=== PATIENT | female | born 1965 | race Hispanic/Latino ===

== ENCOUNTER 2019-06-30 19:46 | Inpatient (IN) | payer MEDICARE, MEDICAID ==
[2019-06-30 20:13] LABS: #Basophils 0.1 thou/uL (0.0-0.2); #Eosinphils 0.1 thou/uL (0.0-0.7); #Lymphocytes 1.7 thou/uL (1.20-3.40); #Monocytes 0.3 thou/uL (0.11-0.59); #Neutrophils 3.9 thou/uL (1.40-6.50); %Eosinophils 1.9 % (0.0-10.0); %Monocytes 4.5 % (0.0-10.0); %Neutrophils 64.7 % (42.0-75.0); Hemoglobin 13.6 g/dL (12.0-16.0); Mean Corpuscular HGB CONC 33.1 g/dL (32.0-36.0); Mean Corpuscular Hemoglobin 29.8 pg (27.0-31.0); Mean Corpuscular Volume 90.2 fL (78.0-98.0); Mean Platelet Volume 8.6 fL (7.4-10.4); Platelet Count 237 thou/uL (130-400); RBC Distribution Width 13.2 % (11.5-14.5); Red Blood Cell (RBC) Count 4.56 mill/uL (4.20-5.40); White Blood Cell (WBC) Count 6.1 thou/uL (4.8-10.8)
[2019-06-30 20:33] LABS: ALT (SGPT) 12 U/L (8-55); AST (SGOT) 10 U/L (5-34); Alkaline Phosphatase 159 U/L (40-150); Anion Gap 15 mmol/L (10-20); BUN (Urea Nitrogen) 22 mg/dL (9.8-20.1); Calc. Creatinine Clearance 0 mL/min (70-130); Calcium 10.5 mg/dL (7.8-10.44); Carbon Dioxide 26 mmol/L (22-29); Chloride 88 mmol/L (98-107); Estimated GFR-MDRD 42; Globulin 3.2 g/dL (2.4-3.5); Potassium 4.3 mmol/L (3.5-5.1); Protein, Total 7.2 g/dL (6.0-8.3); Sodium 125 mmol/L (136-145)
--- NOTE | 2019-06-30 20:51 | RAD ---
Portable chest radiograph: 06/30/2019 COMPARISON: 07/31/2014 HISTORY: Dysuria, polyuria FINDINGS: There is a stable 1.5 cm lateral mid right lung nodule. Heart and mediastinal contours are stable. No pneumothorax, pleural fluid, focal consolidation, or alveolar edema. IMPRESSION: Stable appearance of the chest-no acute findings.
[2019-06-30] MEDS ORDERED: Ondansetron ODT 4 MG TAB ONE (20:56)
[2019-06-30 21:16] LABS: Glucose 720 mg/dL (70-105)
[2019-06-30 21:45] LABS: Bilirubin Negative (Negative); Blood, Urine Negative (Negative); Clarity Clear (Clear); Glucose, Urine (Dipstick) Greater than 1000 mg/dL (Negative); Leukocyte Negative Leu/uL (Negative); Nitrite Negative (Negative); Protein, Urine (Dipstick) 10 mg/dL (Neg-Trace); Urobilinogen Normal mg/dL (Less than 2)
[2019-06-30] MEDS ORDERED: Mag-Al 1200 mg/1200 mg/30 ML UDCUP ONE (22:38)
[2019-06-30] MEDS ORDERED: Lidocaine Viscous Sol 2% 15 ml UD Cup ONE (22:38)
[2019-07-01] MEDS ORDERED: Insulin Regular 100 units/100 ml in NS IVPB SCH (00:30)
[2019-07-01] MEDS ORDERED: cloNIDine 0.1 MG TAB ONE (01:12)
[2019-07-01 01:41] LABS: Anion Gap 15 mmol/L (10-20); BUN (Urea Nitrogen) 20 mg/dL (9.8-20.1); Calc. Creatinine Clearance 0 mL/min (70-130); Calcium 10.2 mg/dL (7.8-10.44); Carbon Dioxide 23 mmol/L (22-29); Chloride 97 mmol/L (98-107); Estimated GFR-MDRD 56; Glucose 546 mg/dL (70-105); Potassium 3.9 mmol/L (3.5-5.1); Sodium 131 mmol/L (136-145)
--- NOTE | 2019-07-01 05:46 | HP ---
PRIMARY CARE PHYSICIAN: The patient has no PCP. CODE STATUS: Full code. TIME OF EVALUATION: 4:00 a.m. CHIEF COMPLAINT: Hyperglycemia. HISTORY OF PRESENT ILLNESS: This is a 53-year-old female patient with past medical history of diabetes and noncompliance. The patient came to the hospital after having polyuria, polydipsia, fatigue associated with nausea. The patient has not had any insulin in the past few days. Reportedly, has some issues to acquire her medications. Symptoms are severe, triggered by uncontrolled diabetes. No alleviating factors other than medical treatment. REVIEW OF SYSTEMS: CONSTITUTIONAL: The patient had no fever. The patient had chills, generalized weakness. RESPIRATORY: No cough, sputum production, or shortness of breath. CARDIOVASCULAR: No chest pain or palpitation. GASTROINTESTINAL: The patient had nausea and vomiting. No diarrhea. The patient has abdominal pain. SENIOR PREMIUM AUDITOR: No dizziness, headache, or feeling lightheaded. GENITOURINARY: No burning on urination. EXTREMITIES: No leg swelling. All other systems were reviewed and negative except for the findings mentioned above. PAST MEDICAL HISTORY: Positive for diabetes type 2, hypertension. PAST SURGICAL HISTORY: Hernia repair and tubal ligation. PSYCHIATRIC HISTORY: No previous psychiatric history. SOCIAL HISTORY: No alcohol. No drugs. No smoking history. KNOWN ALLERGIES: No known drug allergies. REPORTED MEDICATIONS: Unknown. PHYSICAL EXAMINATION: VITAL SIGNS: Blood pressure 156/98 with heart rate 108, respiratory rate was 20, temperature 98.1, pain was 10, oxygen saturation was 96. GENERAL APPEARANCE: The patient is alert, oriented, no acute distress. HEENT: Eyes, normal conjunctivae. Moist oral mucosa. Anicteric. No JVD. RESPIRATORY: Bilateral air entry. No rales. No wheezing. Symmetric expansion. CARDIOVASCULAR: Normal rate, regular rhythm. No murmurs. No gallop. No edema. ABDOMEN: Soft. Normal bowel sounds. MUSCULOSKELETAL: Baseline range of motion and strength. SKIN: Warm and intact. No pallor. No rash. No redness. The patient has some bilateral lower extremities chronic changes with change in texture and color. Capillary refill seems to be intact. NEUROLOGIC: No evidence of any new focal weakness. Cranial nerves seems to be intact. PSYCHIATRIC: The patient is in good mood. No anxiety. Optimal judgment. IMAGING DATA: Chest x-ray was reviewed, stable appearance of the chest, no acute finding. LABORATORY DATA: Labs were reviewed. The patient has white count of 6.1, hemoglobin 13.6, MCV 90.2, platelet count 237. Chemistry; sodium 125, potassium 4.3, chloride 88, carbon dioxide 26, anion gap 15, BUN 22, creatinine 1.32, GFR 42, glucose 120, serum osmolality 310, calcium 10.5, total bilirubin 1.0, AST 10, ALT 12, alkaline phosphatase 159, troponin was negative. Serum total protein 7.2, albumin 4.0. Urine was done, was negative. Beta hydroxybutyrate 0.3. ASSESSMENT AND PLAN: The patient will be placed in the hospital with following medical problems: 1. Uncontrolled diabetes with early stage of hyperosmolar hyperglycemic state. The patient has increased serum osmolality with glucose 120. The patient has received aggressive hydration and also insulin drip. We will repeat the BMP. Metabolic derangement is improving. We will monitor, likely to be able to switch to insulin subcu and diet. 2. Acute kidney injury. The patient presented with a creatinine of 1.3. Previous creatinine was 1.0. This is likely secondary to dehydration secondary to hyperglycemia. The kidney function have improved after aggressive hydration in the ER. So, this problem has resolved. 3. Hypercalcemia, 10.5. This is mild, likely due to dehydration. This has corrected also after aggressive hydration. 4. Uncontrolled hypertension. The systolic blood pressure in the 180s. Reconcile home medications, adjust treatment as needed. 5. Deep venous thrombosis prophylaxis. Job ID: [id number]
[2019-07-01 07:56] LABS: Anion Gap 9 mmol/L (10-20); BUN (Urea Nitrogen) 18 mg/dL (9.8-20.1); Calc. Creatinine Clearance 0 mL/min (70-130); Calcium 9.5 mg/dL (7.8-10.44); Carbon Dioxide 27 mmol/L (22-29); Chloride 102 mmol/L (98-107); Estimated GFR-MDRD 73; Glucose 249 mg/dL (70-105); Potassium 3.9 mmol/L (3.5-5.1); Sodium 134 mmol/L (136-145)
[2019-07-01] MEDS ORDERED: D5 1/2 NS w/20 mEq KCL 1,000 ML ONE (09:08)
[2019-07-01] MEDS ORDERED: D5 1/2 NS w/20 mEq KCL 1,000 ML IV SCH (09:15)
[2019-07-01] MEDS ORDERED: Dextrose 5% in Water 1,000 ML IV PRN (13:32)
[2019-07-01] MEDS ORDERED: Dextrose 50% Abboject 50 ML SYRINGE SLOW IVP PRN (13:32)
--- NOTE | 2019-07-01 13:41 | PDOC.EVN ---
Event Note - Event Note Event Note: Chart reviewed, patient seen and examined. She is feeling better in general. Hungry. Reports she has had urinary urgency and frequency. Labs improving. Blood sugars are improved. Was changed to D5 1/2 NS. Exam is benign. Will change IVF to NS at 100 cc/her. Stop insulin gtt. Add Lantus, Moderate SSI. Diabetic diet. Downgrade to medical floor bed. Urine cx growing probable E. coli. Start Rocephin.
[2019-07-01] MEDS ORDERED: cefTRIAXone\\ROCEPHIN 1 GM in Sodium Chloride 0.9% 100 ML IVPB SCH (14:00)
[2019-07-01] MEDS ORDERED: Insulin Glargine 20 UNITS in Pre-Filled Syringe 1 EACH SC SCH (14:15)
[2019-07-01 14:59] VITALS: BMI 41.1
[2019-07-01] MEDS: HumaLOG 300 UNITS/3 ML VIAL SC PRN (17:21)
[2019-07-01] MEDS ORDERED: HumaLOG 300 UNITS/3 ML VIAL SC PRN (20:16)
[2019-07-02] MEDS: HumaLOG 300 UNITS/3 ML VIAL SC PRN ×2 (05:14→12:24)
[2019-07-02] MEDS ORDERED: Insulin Glargine 20 UNITS in Pre-Filled Syringe 1 EACH SC SCH (09:00)
[2019-07-02] MEDS ORDERED: Amlodipine 10 MG TAB PO SCH (09:00)
[2019-07-02 09:49] LABS: #Eosinphils 0.2 thou/uL (0.0-0.7); #Lymphocytes 1.5 thou/uL (1.20-3.40); #Monocytes 0.3 thou/uL (0.11-0.59); #Neutrophils 2.9 thou/uL (1.40-6.50); %Basophils 0.1 % (0.0-1.0); %Eosinophils 3.3 % (0.0-10.0); %Lymphocytes 31.5 % (21.0-51.0); %Monocytes 5.1 % (0.0-10.0); %Neutrophils 59.9 % (42.0-75.0); Hemoglobin 12.8 g/dL (12.0-16.0); Mean Corpuscular HGB CONC 33.1 g/dL (32.0-36.0); Mean Corpuscular Hemoglobin 29.1 pg (27.0-31.0); Mean Corpuscular Volume 87.9 fL (78.0-98.0); Mean Platelet Volume 8.8 fL (7.4-10.4); Platelet Count 197 thou/uL (130-400); RBC Distribution Width 13.3 % (11.5-14.5); Red Blood Cell (RBC) Count 4.39 mill/uL (4.20-5.40); White Blood Cell (WBC) Count 4.9 thou/uL (4.8-10.8)
[2019-07-02 10:10] LABS: ALT (SGPT) 13 U/L (8-55); AST (SGOT) 16 U/L (5-34); Albumin 3.4 g/dL (3.5-5.0); Alkaline Phosphatase 75 U/L (40-150); Anion Gap 8 mmol/L (10-20); BUN (Urea Nitrogen) 16 mg/dL (9.8-20.1); Bilirubin, Total 0.5 mg/dL (0.2-1.2); Calc. Creatinine Clearance 150 mL/min (70-130); Calcium 8.9 mg/dL (7.8-10.44); Carbon Dioxide 26 mmol/L (22-29); Chloride 105 mmol/L (98-107); Estimated GFR-MDRD 83; Globulin 2.6 g/dL (2.4-3.5); Glucose 260 mg/dL (70-105); Sodium 135 mmol/L (136-145)
[2019-07-02 11:12] VITALS: BP 144/71; TEMP 97.9
[2019-07-02] MEDS ORDERED: Carvedilol 25 MG TAB PO SCH (17:00)
== END 2019-07-02 14:14 | disposition home or self-care (01) | DRG 638 ==
LOC: ERS 19:46 → ERHOLD 07-01 01:05 → T4-A 07-01 01:05
PROVIDERS: ADMIT Hospitalist; ATTEND Hospitalist
DX: E11.00 Type 2 diabetes mellitus with hyperosmolarity without nonketotic hyperglycemic-hyperosmolar coma (NKHHC) (principal); N17.9 Acute kidney failure, unspecified; E83.52 Hypercalcemia; E86.0 Dehydration; I10 Essential (primary) hypertension; B96.20 Unspecified Escherichia coli [E. coli] as the cause of diseases classified elsewhere; Z98.51 Tubal ligation status; Z79.4 Long term (current) use of insulin; Z91.14 Patient's other noncompliance with medication regimen
CPT/HCPCS: 36415; 36416; 71045; 80048; 80053; 81003; 82010; 83880; 83930; 84484; 85025; 87077; 87086; 87186; 94760; J0696; J1815; J3480; J3490; J7050; Q0162

== ENCOUNTER 2019-08-25 13:32 | Outpatient (CLI) | payer MEDICARE, MEDICAID ==
--- NOTE | 2019-08-25 13:47 | RAD ---
XR Chest Pa Lat STANDARD HISTORY: Coronary artery disease COMPARISON: 07/31/2014 study. FINDINGS: Heart size is borderline. There are atherosclerotic changes of aorta. A granuloma is seen i n the right midlung field. Stable. No infiltrative process. IMPRESSION: Borderline heart size.
== END 2019-08-25 13:33 | disposition home or self-care (01) ==
LOC: BICRAD 13:32
PROVIDERS: ATTEND Internal Medicine
DX: I25.10 Atherosclerotic heart disease of native coronary artery without angina pectoris (principal)
CPT/HCPCS: 71046

== ENCOUNTER 2019-09-04 19:39 | Observation (INO) | payer MEDICARE, OTHER ==
[2019-09-04 21:09] LABS: #Basophils 0.1 thou/uL (0.0-0.2); #Eosinphils 0.2 thou/uL (0.0-0.7); #Lymphocytes 2.4 thou/uL (1.20-3.40); #Monocytes 0.3 thou/uL (0.11-0.59); %Basophils 0.7 % (0.0-1.0); %Eosinophils 2.3 % (0.0-10.0); %Lymphocytes 29.5 % (21.0-51.0); %Monocytes 4.1 % (0.0-10.0); %Neutrophils 63.4 % (42.0-75.0); Hemoglobin 14.2 g/dL (12.0-16.0); Mean Corpuscular HGB CONC 35.6 g/dL (32.0-36.0); Mean Corpuscular Hemoglobin 29.9 pg (27.0-31.0); Mean Platelet Volume 8.4 fL (7.4-10.4); Platelet Count 250 thou/uL (130-400); RBC Distribution Width 12.8 % (11.5-14.5); Red Blood Cell (RBC) Count 4.73 mill/uL (4.20-5.40)
--- NOTE | 2019-09-04 21:18 | RAD ---
XR Chest 1 View Portable History: Arm pain and hypertension Comparison: Multiple prior examinations, most recent August 25, 2019 Findings: Unchanged right middle lobe granuloma. Lungs are otherwise clear. No pneumothorax. No effus ion. No acute osseous abnormality. Impression: No acute intrathoracic abnormality.
[2019-09-04 21:30] LABS: Troponin I 0.015 ng/mL (< 0.028)
[2019-09-04 21:35] LABS: ALT (SGPT) 17 U/L (8-55); AST (SGOT) 15 U/L (5-34); Albumin 3.8 g/dL (3.5-5.0); Alkaline Phosphatase 106 U/L (40-110); Anion Gap 14 mmol/L (10-20); BUN (Urea Nitrogen) 20 mg/dL (9.8-20.1); Bilirubin, Total 0.6 mg/dL (0.2-1.2); CK (CPK) 37 U/L (29-168); Calc. Creatinine Clearance 0 mL/min (70-130); Calcium 9.1 mg/dL (7.8-10.44); Carbon Dioxide 24 mmol/L (22-29); Chloride 96 mmol/L (98-107); Estimated GFR-MDRD 58; Globulin 3.2 g/dL (2.4-3.5); Glucose 465 mg/dL (70-105); Lipase 40 U/L (8-78); Potassium 3.9 mmol/L (3.5-5.1); Sodium 130 mmol/L (136-145)
[2019-09-04] MEDS ORDERED: Aspirin Chewable 81 MG TAB ONE (21:50)
[2019-09-04] MEDS ORDERED: Nitroglycerin 0.4 MG TAB 1 EACH ONE (21:50)
[2019-09-04] MEDS ORDERED: traMADol HCl 50 MG TAB ONE (23:56)
[2019-09-05 00:25] LABS: Troponin I Less than 0.010 ng/mL (< 0.028)
[2019-09-05 03:37] VITALS: BMI 38.2
[2019-09-05] MEDS ORDERED: Acetaminophen 325 MG TAB PO PRN (04:04)
[2019-09-05] MEDS ORDERED: Sodium Chloride 0.9% 1,000 ML IV SCH (04:15)
[2019-09-05 04:45] LABS: Troponin I 0.029 ng/mL (< 0.028)
[2019-09-05] MEDS ORDERED: Aspirin Chewable 81 MG TAB PO SCH (09:00)
[2019-09-05] MEDS ORDERED: Amlodipine 10 MG TAB PO SCH (12:15)
[2019-09-05] MEDS ORDERED: Losartan 25 MG TAB PO SCH (12:15)
[2019-09-05 12:24] VITALS: TEMP 97.5
[2019-09-05] MEDS ORDERED: FLU VACC QS2019-20(6MOS UP)/PF 60 MCG/0.5 ML SYRINGE IM ONE (12:30)
[2019-09-05 13:35] VITALS: BP 156/79
--- NOTE | 2019-09-05 14:55 | HP ---
REASON FOR ADMISSION: Right upper extremity pain, uncontrolled diabetes. HISTORY OF PRESENTING ILLNESS: The patient gives history of pain in the right upper extremity especially in her elbow and arm when she tries to move it. No complaints of left-sided chest pain or left upper extremity pain. No complaints of cough or expectoration. No history of fall. She normally uses a walker due to severe osteoarthritis in her knee. She has known history of sleep apnea and uses CPAP. No fever, cough, or expectoration. No history of trauma to the neck. She is able to move all her fingers on the right upper extremity and is able to do both active and passive range of motion in the right upper extremity at present. The pain has completely resolved at present. She had this pain yesterday, which was 3 to 4/10 in intensity with no radiation. PAST MEDICAL AND SURGICAL HISTORY: 1. Diabetes mellitus type 2. 2. Obstructive sleep apnea. 3. Hypertension. 4. She has had coronary artery disease with drug-eluting stent placed to LAD in August of last year by Dr. Thompson. 5. Tubal ligation. CURRENT MEDICATIONS: 1. Toprol-XL 25 mg p.o. daily. 2. Norvasc 10 mg daily. 3. Protonix 40 mg daily. 4. Losartan 100 mg daily. 5. Tresiba 20 units subcu at bedtime. ALLERGIES: NO KNOWN DRUG ALLERGIES. PERSONAL HISTORY: Does not abuse alcohol or drugs. No history of smoking. FAMILY HISTORY: Mother in her 60s, she had complications with CABG done in [place]. Father of massive IL at the age of 55 years. CODE STATUS: Full. POWER OF HOT TOP LINER: Her , Mr. Alan Mckeon. REVIEW OF SYSTEMS: CONSTITUTIONAL: Negative for weight loss or gain, ability to conduct usual activities. SKIN: Negative for rash, itching. EYES: Negative for double vision, pain. ENT/MOUTH: Negative for nose bleeding, neck stiffness, pain, tenderness. CARDIOVASCULAR: Negative for palpitations, dyspnea on exertion, orthopnea. RESPIRATORY: Negative for shortness of breath, wheezing, cough, hemoptysis, fever or night sweats. GASTROINTESTINAL: Negative for poor appetite, abdominal pain, heartburn, nausea, vomiting, constipation, or diarrhea. GENITOURINARY: Negative for urgency, frequency, dysuria, nocturia. MUSCULOSKELETAL: Negative for pain, swelling. NEUROLOGIC/PSYCHIATRIC: Negative for anxiety, depression. ALLERGY/IMMUNOLOGIC: Negative for skin rash, bleeding tendency. PHYSICAL EXAMINATION: GENERAL: The patient is a 53-year-old female, who is currently not in any acute distress. VITAL SIGNS: Blood pressure 160/80, pulse 90 per minute, respiratory rate 16 per minute, temperature 97.5 degrees Fahrenheit, saturating 99% on room air. NECK: Supple. No elevated JVD. HEENT: Eyes; extraocular muscles intact. Pupils reacting to light. Oral cavity, mucous membranes are dry. No exudates or congestion. CARDIOVASCULAR: S1, S2 heard. Regular rhythm. RESPIRATORY: Air entry 1+ bilateral. No rales or rhonchi. ABDOMEN: Soft. Bowel sounds heard. No tenderness, rigidity, or guarding. EXTREMITIES: No peripheral edema or calf tenderness. VASCULAR SYSTEM: Peripheral pulses 1+ bilateral. No ischemic ulcerations or gangrene. CENTRAL NERVOUS SYSTEM: No gross focal deficits noted. The patient is alert, awake, oriented well. PSYCHIATRIC: The patient's mood is euthymic. No hallucinations or delusions. LABORATORY AND DIAGNOSTIC DATA: Troponin x2 negative. BUN 20, creatinine 0.9, serum glucose 465 on arrival. Liver enzymes within normal limits. BNP 36. Albumin is 3.8. Lipase is 40. H and H of 14 and 39, platelet count 250, white count of 8. D-dimer less than 0.27. EKG done shows normal sinus rhythm at 96 beats per minute. There are signs of LVH seen. QRS duration is 114 milliseconds with corrected QT of 517 milliseconds. CLINICAL IMPRESSION AND PLAN: The patient will be shortly discharged home. Please note, this is a same day admission and observation discharge summary. She was counseled with regard to compliance with her medications for diabetes. She is advised to check fingerstick glucose twice daily and record for a period of 10 days to follow up with primary care physician. The patient has had prior stent placed in August of last year and follows up with Dr. Thompson. She was not taking antiplatelet agents before. She has been placed on aspirin and needs to continue her Norvasc, losartan, Toprol-XL as before. We will also place her on Lipitor 40 mg at bedtime in view of elevated total cholesterol of 218, triglycerides of 326, LDL of 109. We will add Tricor 48 mg p.o. daily as well to her medication regimen. She is otherwise hemodynamically stable. She is ambulating with a rolling walker with 3 wheels. The patient needs to follow up with her primary haircutter, Dr. Thompson in 2 weeks, and primary care physician, Dr. Yang in 1 week. Job ID: [id number]
[2019-09-06] MEDS ORDERED: Losartan 25 MG TAB PO SCH (09:00)
[2019-09-06] MEDS ORDERED: Amlodipine 10 MG TAB PO SCH (09:00)
--- NOTE | 2019-09-13 15:01 | EKG ---
Test Reason : Blood Pressure : / mmHG Vent. Rate : 092 BPM Atrial Rate : 092 BPM P-R Int : 178 ms QRS Dur : 108 ms QT Int : 404 ms P-R-T Axes : 057 -38 084 degrees QTc Int : 499 ms Normal sinus rhythm Possible Left atrial enlargement Left axis deviation Left ventricular hypertrophy Prolonged QT Abnormal ECG Confirmed by NICKOLAS SALEEM DO ([id number]), editor city BRANDON GLEZ ([id number]) on 09/13/2019 3:01:08 PM Referred By: Confirmed By:NICKOLAS SALEEM DO
== END 2019-09-05 13:55 | disposition home or self-care (01) ==
LOC: ERS 19:39 → 2SW 09-05 02:43
PROVIDERS: ADMIT Internal Medicine; ATTEND Internal Medicine
DX: M79.621 Pain in right upper arm (principal); M25.521 Pain in right elbow; E11.9 Type 2 diabetes mellitus without complications; I10 Essential (primary) hypertension; I25.10 Atherosclerotic heart disease of native coronary artery without angina pectoris; G47.33 Obstructive sleep apnea (adult) (pediatric); Z30.2 Encounter for sterilization; Z79.899 Other long term (current) drug therapy; Z95.5 Presence of coronary angioplasty implant and graft
CPT/HCPCS: 71045; 80053; 80061; 82550; 82962; 83690; 83880; 84484 ×3; 85025; 85379; 90686; 93005; 96360; 99285; G0008; G0378 ×3; 36415; 36416; 90471

== ENCOUNTER 2019-09-26 17:04 | Emergency (ER) | payer MEDICARE, MEDICAID ==
[2019-09-26 17:57] LABS: #Eosinphils 0.1 thou/uL (0.0-0.7); #Lymphocytes 1.7 thou/uL (1.20-3.40); #Monocytes 0.3 thou/uL (0.11-0.59); #Neutrophils 5.6 thou/uL (1.40-6.50); %Basophils 0.6 % (0.0-1.0); %Eosinophils 1.5 % (0.0-10.0); %Lymphocytes 22.2 % (21.0-51.0); %Monocytes 3.6 % (0.0-10.0); %Neutrophils 72.1 % (42.0-75.0); Hemoglobin 14.7 g/dL (12.0-16.0); Mean Corpuscular HGB CONC 34.2 g/dL (32.0-36.0); Mean Corpuscular Hemoglobin 29.3 pg (27.0-31.0); Mean Corpuscular Volume 85.6 fL (78.0-98.0); Mean Platelet Volume 8.4 fL (7.4-10.4); Platelet Count 268 thou/uL (130-400); RBC Distribution Width 12.6 % (11.5-14.5); Red Blood Cell (RBC) Count 5.01 mill/uL (4.20-5.40); White Blood Cell (WBC) Count 7.8 thou/uL (4.8-10.8)
[2019-09-26 18:20] LABS: ALT (SGPT) 13 U/L (8-55); AST (SGOT) 13 U/L (5-34); Albumin 4.2 g/dL (3.5-5.0); Alkaline Phosphatase 138 U/L (40-110); Anion Gap 16 mmol/L (10-20); BUN (Urea Nitrogen) 20 mg/dL (9.8-20.1); Bilirubin, Total 0.5 mg/dL (0.2-1.2); Calc. Creatinine Clearance 0 mL/min (70-130); Calcium 9.9 mg/dL (7.8-10.44); Carbon Dioxide 26 mmol/L (22-29); Chloride 96 mmol/L (98-107); Estimated GFR-MDRD 62; Globulin 3.6 g/dL (2.4-3.5); Glucose 453 mg/dL (70-105); Potassium 4.1 mmol/L (3.5-5.1); Protein, Total 7.8 g/dL (6.0-8.3); Sodium 134 mmol/L (136-145)
[2019-09-26 18:22] LABS: Bacteria/HPF None Seen HPF (None Seen); Bilirubin Negative (Negative); Blood, Urine Negative (Negative); Clarity Clear (Clear); Glucose, Urine (Dipstick) Greater than 1000 mg/dL (Negative); Leukocyte Negative Leu/uL (Negative); Nitrite Negative (Negative); Protein, Urine (Dipstick) 30 mg/dL (Neg-Trace); RBC/HPF 0-3 HPF (0-3); Squamous Epithelial 0-3 HPF (0-3); Urobilinogen Normal mg/dL (Less than 2)
--- NOTE | 2019-09-26 18:34 | CT ---
CT Abdomen Pelvis WO Con History: Right-sided flank pain Comparison: CT abdomen and pelvis 2011 Findings: Calcified granuloma right upper lobe with small adjacent pulmonary nodules. Mitral annular calcifications. There is a nonobstructive the interpolar 1 x 2 mm calculus there is also a 1 x 2 mm superior calculus . No definite left-sided renal calculi are appreciated. No hydroureteronephrosis. No secondary evidence of a recently passed stone. There are multiple ventral abdominal hernias, supraumbilical, 3 deficient and atrophied left rectus a bdominis muscle. Please contains fat and a small portion of small bowel, and another has a small loop of small bowel with small sub-1 cm neck. These are nonobstructive. Noncontrast evaluation of the spleen, pancreas, liver, gallbladder are unremarkable. The appendix is visualized and is normal. Impression: 1. Multiple supraumbilical ventral hernias containing fat and small bowel as described with small nec ks without evidence of obstruction. 2. Punctate nonobstructive bilateral renal calculi. 3. Unchanged right upper lobe calcified pulmonary nodule adjacent smaller pulmonary nodules since 201 6.
[2019-09-26] MEDS ORDERED: Ondansetron PF 4 MG/2 ML Vial ONE (18:58)
[2019-09-26] MEDS ORDERED: Morphine 4 MG/ML VIAL ONE (18:58)
== END 2019-09-26 19:23 | disposition home or self-care (01) ==
LOC: ERS 17:04
DX: R10.9 Unspecified abdominal pain (principal); E11.9 Type 2 diabetes mellitus without complications; I10 Essential (primary) hypertension; M19.90 Unspecified osteoarthritis, unspecified site; F41.9 Anxiety disorder, unspecified; Z79.899 Other long term (current) drug therapy; Z79.4 Long term (current) use of insulin
CPT/HCPCS: 74176; 80053; 81003; 81015; 83690; 85025; 96374; 96375; J2270; J2405

== ENCOUNTER 2019-10-30 10:41 | Day surgery (SDC) | payer MEDICARE, MEDICAID ==
[2019-10-29 14:08] VITALS: BMI 39.4
[~2019-10-30 10:41] MED LIST: EPINEPHrine 0.3 MG in Ophthalmic Irrigation Solution 500 ML IVP SCH
[2019-10-30] MEDS ORDERED: Phenylephrine 2.5% Ophth Soln 5 ML BOT ONE (10:56)
[2019-10-30] MEDS ORDERED: Cyclopentolate 1% Opth Drop 2 ML BOT ONE (10:56)
[2019-10-30] MEDS ORDERED: PROPOFOL 200 MG/20 ML VIAL ONE (11:25)
[2019-10-30] MEDS ORDERED: Lidocaine 1% PF 5 ML VIAL ONE (11:25)
[2019-10-30] MEDS ORDERED: Bupivacaine PF 0.75% SDV 10 ML ONE (11:25)
[2019-10-30] MEDS ORDERED: Rocuronium Bromide 10 MG/ML (10ML VIAL) ONE (11:25)
[2019-10-30] MEDS ORDERED: PHENYLEPHRINE-NS 100 MCG/ML 10 ML SYRINGE ONE (11:25)
[2019-10-30] MEDS ORDERED: Glycopyrrolate 0.2 MG/ML 5 ML SYRINGE ONE (11:25)
[2019-10-30] MEDS ORDERED: Lidocaine 4% PF 5 ML AMP ONE (11:25)
[2019-10-30] MEDS ORDERED: Triamcinolone 40 MG/ML VIAL ONE (11:25)
[2019-10-30] MEDS ORDERED: Maxitrol 0.1% Opth Oint 3.5 GM TUBE ONE (11:25)
[2019-10-30] MEDS ORDERED: Labetalol HCl 100 MG/20 ML VIAL ONE (11:25)
[2019-10-30] MEDS ORDERED: Dexamethasone 20 MG/5 ML VIAL ONE (11:25)
[2019-10-30] MEDS ORDERED: Insulin Regular 300 UNITS/3 ML VIAL ONE (12:22)
[2019-10-30] MEDS ORDERED: Midazolam HCl 2 mg/2 ml Vial ONE (13:03)
[2019-10-30] MEDS ORDERED: Albuterol Sulfate HFA (OR ONLY) ONE (13:42)
[2019-10-30] MEDS ORDERED: Phenylephrine HCL 10 MG/ML VIAL ONE (13:55)
--- NOTE | 2019-10-30 16:16 | RAD ---
EXAM: CHEST ONE VIEW: 10/30/19 HISTORY: Follow-up pulmonary nodule. Stable 1.5 cm right lateral mid lung zone nodule. Less inspiration than the prior study. New parenchy mal changes in the retrocardiac region in the left lower lobe concerning for pneumonia and/or atelect asis. Mild vascular congestion. Borderline heart size. IMPRESSION: Borderline heart size with mild bilateral vascular congestion. Stable right mid lateral lung zone nod ule. New parenchymal changes in the left lower lobe evidence for pneumonia and/or partial atelectasis . POS: TPC
== END 2019-10-30 17:43 | disposition home or self-care (01) ==
LOC: SDC 10:41
PROVIDERS: ATTEND Ophthalmology Retina Specialist
DX: H43.12 Vitreous hemorrhage, left eye (principal)
CPT/HCPCS: 36416; 71045; 94660; J0171; J1100; J1815; J2001; J2250; J2370; J2704; J3301; J3490

== ENCOUNTER 2019-11-18 11:05 | Emergency (ER) | payer MEDICAID, OTHER ==
[2019-11-18] MEDS ORDERED: Acetaminophen 500 MG TAB ONE (11:22)
[2019-11-18] MEDS ORDERED: Ibuprofen 800 MG TAB ONE (11:22)
== END 2019-11-18 12:30 | disposition home or self-care (01) ==
LOC: ERS 11:05
DX: J06.9 Acute upper respiratory infection, unspecified (principal); I10 Essential (primary) hypertension; E11.9 Type 2 diabetes mellitus without complications; F41.9 Anxiety disorder, unspecified; Z79.899 Other long term (current) drug therapy; Z79.4 Long term (current) use of insulin
CPT/HCPCS: 87804; 99283

== ENCOUNTER 2019-12-23 20:30 | Outpatient (CLI) | payer MEDICARE, MEDICAID | END 2019-12-23 20:31 | disposition home or self-care (01) | LOC: SLEEPLAB 20:30 | PROVIDERS: ATTEND Internal Medicine Critical Care Medicine | DX: G47.33 Obstructive sleep apnea (adult) (pediatric) (principal); R09.89 Other specified symptoms and signs involving the circulatory and respiratory systems; R53.83 Other fatigue; G47.31 Primary central sleep apnea | CPT/HCPCS: 95811 ==

== ENCOUNTER 2020-02-10 16:10 | Emergency (ER) | payer MEDICARE, MEDICAID | END 2020-02-10 16:57 | disposition home or self-care (01) | LOC: ERS 16:10 | DX: J20.9 Acute bronchitis, unspecified (principal); I25.10 Atherosclerotic heart disease of native coronary artery without angina pectoris; E11.9 Type 2 diabetes mellitus without complications; I10 Essential (primary) hypertension; F41.9 Anxiety disorder, unspecified; G47.33 Obstructive sleep apnea (adult) (pediatric); Z79.899 Other long term (current) drug therapy; Z79.4 Long term (current) use of insulin | CPT/HCPCS: 99283 ==

== ENCOUNTER 2020-09-06 10:00 | Observation (INO) | payer MEDICARE, MEDICAID, OTHER ==
[2020-09-06 10:43] LABS: #Eosinphils 0.1 thou/uL (0.0-0.7); #Lymphocytes 1.6 thou/uL (1.20-3.40); #Monocytes 0.3 thou/uL (0.11-0.59); #Neutrophils 3.9 thou/uL (1.40-6.50); %Basophils 0.4 % (0.0-1.0); %Lymphocytes 27.1 % (21.0-51.0); %Monocytes 4.1 % (0.0-10.0); %Neutrophils 66.4 % (42.0-75.0); Mean Corpuscular HGB CONC 35.4 g/dL (32.0-36.0); Mean Corpuscular Volume 87.6 fL (78.0-98.0); Mean Platelet Volume 8.7 fL (7.4-10.4); Platelet Count 251 thou/uL (130-400); RBC Distribution Width 12.9 % (11.5-14.5); Red Blood Cell (RBC) Count 4.51 mill/uL (4.20-5.40); White Blood Cell (WBC) Count 5.9 thou/uL (4.8-10.8)
[2020-09-06] MEDS ORDERED: Nitroglycerin 2% Ointment 1 INCH/1 GM Packet ONE (10:45)
[2020-09-06] MEDS ORDERED: Aspirin Chewable 81 MG TAB ONE (10:45)
--- NOTE | 2020-09-06 10:45 | RAD ---
XR Chest 1 View Portable History: Chest pain Comparison: Radiograph 11/28/2019 Findings: Heart size mildly enlarged. Peripheral right lung nodule is similar. No confluent airspace consolidation, pneumothorax or effusion. Impression: No acute intrathoracic abnormality.
[2020-09-06 11:03] LABS: ALT (SGPT) 12 U/L (8-55); AST (SGOT) 10 U/L (5-34); Albumin 3.8 g/dL (3.5-5.0); Alkaline Phosphatase 136 U/L (40-110); Anion Gap 11 mmol/L (10-20); BUN (Urea Nitrogen) 28 mg/dL (9.8-20.1); Bilirubin, Total 0.5 mg/dL (0.2-1.2); Calc. Creatinine Clearance 0 mL/min (70-130); Calcium 9.1 mg/dL (7.8-10.44); Carbon Dioxide 26 mmol/L (22-29); Chloride 102 mmol/L (98-107); Estimated GFR-MDRD 68; Globulin 3.4 g/dL (2.4-3.5); Glucose 351 mg/dL (70-105); Lipase 30 U/L (8-78); Potassium 4.2 mmol/L (3.5-5.1); Protein, Total 7.2 g/dL (6.0-8.3); Sodium 135 mmol/L (136-145)
[2020-09-06 14:24] LABS: Troponin I 0.021 ng/mL (< 0.028)
--- NOTE | 2020-09-06 14:43 | PDOC.HHP ---
Hospitalist HPI - History of Present Illness Chest pain History of Present Illness: Ms. Garcia is a 54-year-old female with a past medical history of hypertension, hyperlipidemia, coronary artery disease status post heart cath in November which showed significant multivessel coronary artery disease, not felt to be a surgical candidate who presents with chest pain. Patient reports non- radiating chest pain that is substernal rated as 9 out of 10 which has lasted for the past week. Pain is constant with no alleviating or aggravating factors. In the ED initial vital signs show 192/100, 92, 14, 95% on room air. EKG showed normal sinus rhythm with no ischemic changes. Initial troponin less than 0.01, BNP 57 chest x-ray negative. Sodium 135, BUN/CR 28/0.86, glucose 351. In the ED patient received 325 of ASA, Nitropaste, and labetalol. ED provider spoke with Dr. Valdez patient's wastewater treatment plant chemist who recommended that patient be admitted for ACS rule out. Hospitalist ROS - Review of Systems Constitutional: denies: fever, chills, sweats, weakness, malaise, other Eyes: denies: pain, vision change, conjunctivae inflammation, eyelid inflammation, redness, other ENT: denies: ear pain, ear discharge, nose pain, nose discharge, nose congestion, mouth pain, mouth swelling, throat pain, throat swelling, other Respiratory: denies: cough, dry, shortness of breath, hemoptysis, SOB with excertion, pleuritic pain, sputum, wheezing, other Cardiovascular: reports: chest pain. denies: palpitations, orthopnea, paroxysmal noc. dyspnea, edema, light headedness, other Gastrointestinal: denies: nausea, vomiting, abdominal pain, diarrhea, constipation, melena, hematochezia, other Genitourinary: denies: dysuria, frequency, incontinence, hematuria, retention, other Musculoskeletal: denies: neck pain, shoulder pain, arm pain, back pain, hand pain, leg pain, foot pain, other Skin: denies: rash, lesions, hadley, bruising, other Neurological: denies: weakness, numbness, incoordination, change in speech, confusion, seizures, other - Medication Medications: Home medications include Amlodipine 10 mg Pantoprazole 40 mg ASA 81 mg Atorvastatin 80 mg Metoprolol 100 mg Insulin lispro No known drug allergies Hospitalist History - Past Medical History Other Medical History: Social history includes Coronary artery disease KERRI Hypertension Type 2 diabetes mellitus Hyperlipidemia Obesity - Past Surgical History Other Surgical History: Heart catheterization completed in November of this year which showed multivessel coronary artery disease. Cardiovascular surgery at that time did not feel patient was a surgical candidate. Patient also has a history of a stent in the LAD that was pain at time of heart cath in November. - Family History Other Family History: Strong family history of coronary artery disease including patient's mother who passed during complications of a CABG in her 60s, and father who passed of an CT at age 55. - Social History Smoking Status: Never smoker Alcohol: reports: None Drugs: reports: none Living Situation: With Family Activity level: independent ambulation - Exam General Appearance: NAD, awake alert Eye: PERRL, anicteric sclera ENT: normocephalic atraumatic, no oropharyngeal lesions, moist mucosa Neck: supple, symmetric, no JVD, no thyromegaly, no lymphadenopathy, no carotid bruit Heart: RRR, no murmur, no gallops, no rubs, normal peripheral pulses Respiratory: CTAB, no wheezes, no rales, no ronchi, normal chest expansion, no tachypnea, normal percussion Gastrointestinal: soft, non-tender, non-distended, normal bowel sounds, no palpable masses, no hepatomegaly, no splenomegaly, no bruit Extremities: no cyanosis, no clubbing, no edema Skin: normal turgor, no lesions, no rashes Neurological: cranial nerve grossly intact, normal sensation to touch, no weakness, no focal deficits, no new deficit Musculoskeletal: normal tone, normal strength, no muscle wasting Psychiatric: normal affect, normal behavior, A&O x 3 Hospitalist Results - Labs Result Diagrams: 09/06/20 10:25 09/06/20 10:25 Lab results: WBC 5.9 thou/uL (4.8-10.8) 09/06/20 10:25 Hgb 14.0 g/dL (12.0-16.0) 09/06/20 10:25 Hct 39.5 % (36.0-47.0) 09/06/20 10:25 MCV 87.6 fL (78.0-98.0) 09/06/20 10:25 Plt Count 251 thou/uL (130-400) 09/06/20 10:25 Neutrophils % 66.4 % (42.0-75.0) 09/06/20 10:25 Sodium 135 mmol/L (136-145) L 09/06/20 10:25 Potassium 4.2 mmol/L (3.5-5.1) 09/06/20 10:25 Chloride 102 mmol/L (98-107) 09/06/20 10:25 Carbon Dioxide 26 mmol/L (22-29) 09/06/20 10:25 BUN 28 mg/dL (9.8-20.1) H 09/06/20 10:25 Creatinine 0.86 mg/dL (0.6-1.1) 09/06/20 10:25 Glucose 351 mg/dL (70-105) H 09/06/20 10:25 Calcium 9.1 mg/dL (7.8-10.44) 09/06/20 10:25 Total Bilirubin 0.5 mg/dL (0.2-1.2) 09/06/20 10:25 AST 10 U/L (5-34) 09/06/20 10:25 ALT 12 U/L (8-55) 09/06/20 10:25 Alkaline Phosphatase 136 U/L (40-110) H 09/06/20 10:25 Troponin I 0.021 ng/mL (< 0.028) 09/06/20 13:48 B-Natriuretic Peptide 57.0 pg/mL (0-100) 09/06/20 10:25 Serum Total Protein 7.2 g/dL (6.0-8.3) 09/06/20 10:25 Albumin 3.8 g/dL (3.5-5.0) 09/06/20 10:25 Lipase 30 U/L (8-78) 09/06/20 10:25 Hospitalist H&P A/P - Plan Plan: 54-year-old female with history of multivessel coronary artery disease, type 2 diabetes mellitus, hypertension, hyperlipidemia, KERRI presented to the ED on 09/06/2020 with chest pain. Admitted for ACS rule out. #Chest pain EKG normal sinus rhythm, initial troponin negative. Patient has history of coronary artery disease with prior LAD stent. Patient also had recent heart cath in November 2019 which showed multivessel coronary artery disease. At that time cardiovascular surgery was consulted who did not feel that patient was a surgical candidate. Patient was medically managed for her coronary artery disease since then. She now presents with 1 week of constant 9 out of 10 chest pain. Chest x-ray negative. Plan -Telemetry -Trend troponin -Monitor electrolytes, calcium, magnesium, TSH -Cardiology consult #Hypertensive emergency Patient presented with significantly elevated blood pressures initially 197/100, increasing to 226/102. Patient reports she has been compliant with her home hypertensive medications. In emergency room patient received 20 mg of labetalol, and Nitropaste. Will ensure slow correction of patient's blood pressure. Plan -Telemetry -Hydralazine PRN -Continue home amlodipine -Continue to monitor #Coronary artery disease As above for chest pain. Continue medical management. Cardiology consult #Type 2 diabetes mellitus History of type 2 diabetes mellitus on insulin. Patient unsure of how many units she takes at home. Will place on insulin sliding scale moderate for now with glucose checks before meals and at night. #GERD Continue home pantoprazole DVT prophylaxis Lovenox Full code Case discussed with attending physician, Dr. Garcia.
[2020-09-06] MEDS ORDERED: Labetalol HCl 100 MG/20 ML VIAL ONE (14:54)
[2020-09-06] MEDS ORDERED: Dextrose 5% in Water 1,000 ML IV PRN (15:40)
[2020-09-06] MEDS ORDERED: Dextrose 50% Abboject 50 ML SYRINGE SLOW IVP PRN (15:40)
[2020-09-06] MEDS ORDERED: Insulin Regular 300 UNITS/3 ML VIAL SC PRN (15:40)
[2020-09-06] MEDS ORDERED: hydrALAZINE 20 MG/ML VIAL SLOW IVP PRN (15:44)
[2020-09-06 16:12] VITALS: BMI 41.8
[2020-09-06 16:45] LABS: Calcium 8.7 mg/dL (7.8-10.44)
[2020-09-06 17:11] LABS: Troponin I 0.025 ng/mL (< 0.028)
[2020-09-06] MEDS: Insulin Regular 300 UNITS/3 ML VIAL SC PRN (17:18)
[2020-09-06] MEDS ORDERED: Metoprolol Tartrate 50 MG TAB PO SCH (21:00)
[2020-09-06] MEDS ORDERED: Atorvastatin Calcium 40 MG TAB PO SCH (21:00)
[2020-09-07] MEDS: Labetalol HCl 100 MG/20 ML VIAL SLOW IVP PRN ×2 (00:07→11:31)
[2020-09-07] MEDS: Nitroglycerin 2% Ointment 1 INCH/1 GM Packet TOP SCH ×3 (00:07→15:25)
[2020-09-07 04:25] LABS: #Basophils 0.1 thou/uL (0.0-0.2); #Eosinphils 0.1 thou/uL (0.0-0.7); #Monocytes 0.4 thou/uL (0.11-0.59); #Neutrophils 4.7 thou/uL (1.40-6.50); %Basophils 0.7 % (0.0-1.0); %Lymphocytes 27.2 % (21.0-51.0); %Neutrophils 64.1 % (42.0-75.0); Hemoglobin 12.6 g/dL (12.0-16.0); Mean Corpuscular HGB CONC 33.2 g/dL (32.0-36.0); Mean Corpuscular Hemoglobin 29.4 pg (27.0-31.0); Mean Corpuscular Volume 88.6 fL (78.0-98.0); Mean Platelet Volume 8.6 fL (7.4-10.4); Platelet Count 246 thou/uL (130-400); RBC Distribution Width 13.3 % (11.5-14.5); Red Blood Cell (RBC) Count 4.29 mill/uL (4.20-5.40); White Blood Cell (WBC) Count 7.4 thou/uL (4.8-10.8)
[2020-09-07 04:38] LABS: Anion Gap 12 mmol/L (10-20); BUN (Urea Nitrogen) 23 mg/dL (9.8-20.1); Calc. Creatinine Clearance 154 mL/min (70-130); Carbon Dioxide 24 mmol/L (22-29); Cardiac Risk 4.4 (Less than 4.5); Chloride 105 mmol/L (98-107); Cholesterol 216 mg/dl (< 200 Desired); Estimated GFR-MDRD 85; Glucose 234 mg/dL (70-105); HDL Cholesterol 49 mg/dL (>60 Neg Risk); LDL Cholesterol, Calculated 121 mg/dL; Sodium 137 mmol/L (136-145); Triglycerides 228 mg/dL (Less than 150)
[2020-09-07] MEDS ORDERED: Nitroglycerin 2% Ointment 1 INCH/1 GM Packet TOP SCH (06:00)
[2020-09-07] MEDS: Insulin Regular 300 UNITS/3 ML VIAL SC PRN ×2 (06:45→11:30)
--- NOTE | 2020-09-07 08:21 | CON ---
DATE OF CONSULTATION: HISTORY OF PRESENT ILLNESS: Deidre Garcia is a 54-year-old female, admitted with chest pain. In March 2018, she underwent placement of drug-eluting stent in the mid LAD at [facility]. I evaluated her in October 2019 for episodes of central chest tightness at rest or with exertion and some exertional dyspnea. Nuclear stress test revealed a fixed apical defect and ischemia in the inferior wall. She underwent cardiac catheterization on November 28, 2019, and had ejection fraction of 50% to 55%. The mid LAD stent was patent and there was total occlusion of the distal LAD with collateral filling for the apical LAD. There were multiple 60% and 80% stenoses in the large 2nd obtuse marginal. The right coronary artery had 90% acute marginal branch, 95% right posterior descending, 80% right posterolateral. She was seen by Dr. Ciro Corona in consultation for her three-vessel coronary artery disease.and he felt that she would not benefit from bypass surgery and should be continued on medical therapy. She has been seen in the office, the last time of which was June 21, 2020. She had some shortness of breath when her blood pressure was elevated. Also, she had an LDL of 86 and atorvastatin was increased from 40 to 80, however, now her LDL is 121 despite increasing the atorvastatin. She states she has not run out of any of her medications. Over the last week, she complains of lower sternal tightness that is not constantly present, but will last for many hours at a time. The pain is not pleuritic in nature. It is not positional or changed with movement. PAST MEDICAL HISTORY: Diabetes, hypertension, hypercholesterolemia, anemia, uterine fibroids, coornar artery disease. OPERATIONS: Bilateral tubal ligation, drug-eluting stent in March 2018 in the mid LAD. SOCIAL HISTORY: She is a former smoker. She does not drink. REVIEW OF SYSTEMS: A 10-point review of systems is otherwise unremarkable. PHYSICAL EXAMINATION: VITAL SIGNS: Blood pressure 178/77, pulse of 86, sinus rhythm on the monitor. HEENT: PERRL. NECK: Supple. CHEST: Clear. CARDIAC: S1 and S2 normal without any S3, S4, or murmurs. ABDOMEN: Obese, normal bowel sounds. No tenderness. EXTREMITIES: Revealed no clubbing, cyanosis, or edema. NEUROLOGIC: Grossly intact. SKIN: Warm and dry. LABORATORY DATA: EKG revealed sinus tachycardia with rate of 104 per minute, possible left atrial enlargement, left axis deviation and left ventricular hypertrophy. Cardiac enzymes reveal normal troponin Is. Sodium 137, potassium 4.0, chloride 105, carbon dioxide 24, BUN 23, creatinine 0.71. Cholesterol 216, triglycerides 228, HDL 49, LDL 121. TSH is normal. Hemoglobin 12.6, hematocrit 38.0, white count 7400, platelets 246,000. IMPRESSION: 1. Noncardiac chest pain. She has had many hours of chest discomfort over the last week with totally normal cardiac enzymes. 2. Three-vessel coronary artery disease, felt not to be a surgical candidate due to diffuse disease. 3. Status post drug-eluting stent placement in the mid LAD in March 2018 at [facility]. 4. Hypertension, poorly controlled. 5. Diabetes. 6. Hypercholesterolemia, poorly controlled. 7. Former smoker, stopped in 2009. 8. Positive family history of coronary artery disease. 9. Obstructive sleep apnea. RECOMMENDATIONS: Zetia will be added to her current cholesterol regimen. We discussed low-cholesterol diet. Also, I am somewhat skeptical whether she is really taking her medications. Blood pressure is poorly controlled and metoprolol will be increased back to her 100 b.i.d. Also add Ranexa 500 mg b.i.d. From a cardiac standpoint, I do not feel any further evaluation is warranted. Job ID: [id number] DONAVAN
[2020-09-07] MEDS ORDERED: Amlodipine 10 MG TAB PO SCH (09:00)
[2020-09-07] MEDS ORDERED: Ezetimibe 10 MG TAB PO SCH (09:00)
[2020-09-07] MEDS ORDERED: Enoxaparin Sodium 40 MG/0.4 ML SYRINGE SC SCH (09:00)
[2020-09-07] MEDS ORDERED: Metoprolol Tartrate 100 MG TAB PO SCH (09:00)
[2020-09-07] MEDS ORDERED: Aspirin 325 mg Enteric Coated Tablet PO SCH (09:00)
[2020-09-07] MEDS ORDERED: Furosemide 20 MG TAB PO SCH (09:00)
[2020-09-07] MEDS ORDERED: Losartan 25 MG TAB PO SCH (09:00)
[2020-09-07 15:25] VITALS: TEMP 98.5
[2020-09-07 16:51] VITALS: BP 153/68
--- NOTE | 2020-09-08 01:56 | DIS ---
DATE OF ADMISSION: 09/06/2020 DATE OF DISCHARGE: 09/07/2020 DISCHARGE DIAGNOSIS: Chest pain, possibly secondary to hypertensive urgency. CONSULTATIONS: Cardiology with Dr. Asher Valdez. PROCEDURES: None. BRIEF HISTORY OF PRESENT ILLNESS: This is a 54-year-old female with a past medical history of hypertension, CAD, status post heart catheterization in November, who presented to the emergency room with chest pain. The patient reported chest pain for the past 1 week. She stated that the pain was in the middle of her chest, constant with no alleviating or aggravating factors. She denied any association with food. She stated the pain was there all the time even when she walked. She came to the ER for further evaluation. Her blood pressure was 192/100. Chest x-ray was normal. Labs were unremarkable. The patient did have a catheterization earlier this year that showed multivessel CAD. She was admitted for further workup. HOSPITAL COURSE: Chest pain, likely secondary to hypertensive urgency: The patient's chest pain resolved after treating her high blood pressure. She was also started on ranexa. Her troponins were negative times three. Her blood pressure was controlled with losartan, metoprolol, amlodipine, and Imdur 30 mg. Cardiology saw the patient, recommended no further cardiac workup. Lipid panel showed an LDL of 121 and triglycerides of 228 and cholesterol 216. The patient was started on Zetia in addition to atorvastatin. She will follow up with her heel cover splitter in a week. She did rule out for ACS. DISCHARGE PHYSICAL EXAMINATION: VITAL SIGNS: Temperature 98.5, heart rate 80, respiratory rate 16, O2 saturation 95% on room air, blood pressure 131/60. GENERAL: The patient is awake, oriented x3. CVS: Regular rate and rhythm with no murmurs, rubs, or gallops. LUNGS: Clear to auscultation bilaterally. ABDOMEN: Positive bowel sounds, soft, nontender, nondistended. EXTREMITIES: No edema. PERTINENT LABORATORY DATA: CBC 09/07: Normal. BMP 09/07: Normal. LFTs 09/06: Mildly elevated alkaline phosphatase of 136. Troponin I: Less than 0.010, 0.021, 0.025. Lipid panel 09/07: Triglyceride 228, cholesterol 216, LDL 121, HDL 49. PERTINENT IMAGING: Chest x-ray 09/06: No acute abnormality. DISCHARGE CONDITION: Stable. ACTIVITY: As tolerated. DIET: Heart healthy diet. DISCHARGE MEDICATIONS: New prescriptions: 1. Imdur 30 mg p.o. daily. 2. Ranexa 500 mg p.o. b.i.d. 3. Zetia 10 mg p.o. daily. All other home medications were resumed. Please refer to discharge worksheet. DISCHARGE INSTRUCTIONS: The patient to follow up with her PCP in a week and her heel cover splitter in a week. She started taking Zetia 10 mg daily. Job ID: [id number] [facility]
[2020-09-08 12:10] LABS: SARS-CoV-2 MS2 Positive; SARS-CoV-2 N Gene Negative; SARS-CoV-2 S Gene Negative; SARS-CoV-2 by NAA Not Detected (NotDetected); SARS-CoV-2 orf1ab Negative
--- NOTE | 2020-09-11 13:25 | EKG ---
Test Reason : Blood Pressure : / mmHG Vent. Rate : 104 BPM Atrial Rate : 104 BPM P-R Int : 172 ms QRS Dur : 120 ms QT Int : 388 ms P-R-T Axes : 059 -35 104 degrees QTc Int : 510 ms Sinus tachycardia Possible Left atrial enlargement Left axis deviation Left ventricular hypertrophy with QRS widening and repolarization abnormality Abnormal ECG Confirmed by ANDREW ESPARZA DO ([id number]), film editor supervisor BRANDON GLEZ ([id number] on 09/11/2020 1:25:17 PM Referred By: Confirmed By:ANDREW ESPAZRA DO
== END 2020-09-07 18:05 | disposition home or self-care (01) ==
LOC: ERS 10:00 → 2NO 13:29
PROVIDERS: ADMIT Student in an Organized Health Care Education/Training Program; ATTEND Student in an Organized Health Care Education/Training Program
DX: R07.89 Other chest pain (principal); I16.1 Hypertensive emergency; I10 Essential (primary) hypertension; I25.10 Atherosclerotic heart disease of native coronary artery without angina pectoris; E11.9 Type 2 diabetes mellitus without complications; E78.00 Pure hypercholesterolemia, unspecified; E78.5 Hyperlipidemia, unspecified; G47.33 Obstructive sleep apnea (adult) (pediatric); K21.9 Gastro-esophageal reflux disease without esophagitis; E66.9 Obesity, unspecified; Z68.41 Body mass index [BMI] 40.0-44.9, adult; Z79.4 Long term (current) use of insulin; Z79.899 Other long term (current) drug therapy; Z82.49 Family history of ischemic heart disease and other diseases of the circulatory system; Z87.891 Personal history of nicotine dependence; Z20.828 Contact with and (suspected) exposure to other viral communicable diseases
CPT/HCPCS: 71045; 80048; 80061; 82310; 82962 ×2; 83690; 83735; 83880; 84484 ×2; 85025; 93005; 94760; 96372; 96374; 96376; 99285; G0378 ×3; U0003; 36415; 36416; 80053; 84443; 87635; J1650; J1815

== ENCOUNTER 2021-03-12 15:32 | Emergency (ER) | payer MEDICARE, MEDICAID ==
[2021-03-12 16:51] LABS: #Eosinphils 0.2 thou/uL (0.0-0.7); #Lymphocytes 1.7 thou/uL (1.20-3.40); #Monocytes 0.3 thou/uL (0.11-0.59); #Neutrophils 4.5 thou/uL (1.40-6.50); %Basophils 0.5 % (0.0-1.0); %Eosinophils 3.5 % (0.0-10.0); %Lymphocytes 24.5 % (21.0-51.0); %Monocytes 4.6 % (0.0-10.0); %Neutrophils 66.9 % (42.0-75.0); Hemoglobin 12.8 g/dL (12.0-16.0); Mean Corpuscular HGB CONC 32.6 g/dL (32.0-36.0); Mean Corpuscular Hemoglobin 29.8 pg (27.0-31.0); Mean Corpuscular Volume 91.3 fL (78.0-98.0); Mean Platelet Volume 8.3 fL (7.4-10.4); Platelet Count 310 thou/uL (130-400); RBC Distribution Width 12.9 % (11.5-14.5); Red Blood Cell (RBC) Count 4.29 mill/uL (4.20-5.40); White Blood Cell (WBC) Count 6.8 thou/uL (4.8-10.8)
[2021-03-12 17:15] LABS: ALT (SGPT) 11 U/L (8-55); AST (SGOT) 12 U/L (5-34); Albumin 3.4 g/dL (3.5-5.0); Alkaline Phosphatase 131 U/L (40-110); Anion Gap 14 mmol/L (10-20); BUN (Urea Nitrogen) 7 mg/dL (9.8-20.1); Bilirubin, Total 0.7 mg/dL (0.2-1.2); CK (CPK) 28 U/L (29-168); Calc. Creatinine Clearance 0 mL/min (70-130); Calcium 8.6 mg/dL (7.8-10.44); Carbon Dioxide 26 mmol/L (22-29); Chloride 98 mmol/L (98-107); Globulin 3.1 g/dL (2.4-3.5); Glucose 449 mg/dL (70-105); Magnesium 1.9 mg/dL (1.6-2.6); Potassium 3.7 mmol/L (3.5-5.1); Protein, Total 6.5 g/dL (6.0-8.3); Sodium 134 mmol/L (136-145)
[2021-03-12] MEDS ORDERED: Insulin Regular 300 UNITS/3 ML VIAL ONE (17:31)
== END 2021-03-12 18:38 | disposition home or self-care (01) ==
LOC: ERS 15:32
DX: R05 Cough (principal); E11.65 Type 2 diabetes mellitus with hyperglycemia; I25.10 Atherosclerotic heart disease of native coronary artery without angina pectoris; G47.30 Sleep apnea, unspecified; I10 Essential (primary) hypertension
CPT/HCPCS: 36416; 71045; 80053; 82550; 83735; 84484; 85025; 93005; 96374; J1815

== ENCOUNTER 2022-03-16 07:13 | Day surgery (SDC) | payer MEDICARE, MEDICAID ==
[2022-03-15 09:33] VITALS: BMI 34.3
[~2022-03-16 07:13] MED LIST changes: -EPINEPHrine 0.3 MG in Ophthalmic Irrigation Solution 500 ML IVP SCH; +Fentanyl 100 MCG/2 ML VIAL ONE; +Fluorouracil 100 MG, Enoxaparin Sodium 25 MG, EPINEPHrine 0.3 MG in Ophthalmic Irrigati... IRR SCH; +Midazolam HCl 2 mg/2 ml Vial ONE
[2022-03-16] MEDS ORDERED: Cyclopentolate 1% Opth Drop 2 ML BOT ONE (07:39)
[2022-03-16] MEDS ORDERED: Phenylephrine 2.5% Ophth Soln 5 ML BOT ONE (07:39)
[2022-03-16] MEDS ORDERED: CEFAZOLIN 1 GM VIAL ONE (09:06)
[2022-03-16] MEDS ORDERED: Bupivacaine 0.75% 10 ML VIAL ONE (09:06)
[2022-03-16] MEDS ORDERED: Enoxaparin Sodium 30 MG/0.3 ML SYRINGE ONE (09:06)
[2022-03-16] MEDS ORDERED: Lidocaine 1% PF 5 ML VIAL ONE (09:06)
[2022-03-16] MEDS ORDERED: Maxitrol 0.1% Opth Oint 3.5 GM TUBE ONE (09:06)
[2022-03-16] MEDS ORDERED: PROPOFOL 200 MG/20 ML VIAL ONE (09:06)
[2022-03-16] MEDS ORDERED: Triamcinolone 40 MG/ML VIAL ONE (09:06)
[2022-03-16] MEDS ORDERED: Indocyanine Green 25 MG/10 ML VIAL ONE (09:06)
[2022-03-16] MEDS ORDERED: ePHEDrine 50 MG/ML VIAL ONE (09:06)
[2022-03-16] MEDS ORDERED: Ondansetron PF 4 MG/2 ML Vial ONE (09:06)
[2022-03-16] MEDS ORDERED: Metoclopramide HCl 10 MG/2 ML VIAL ONE (09:06)
[2022-03-16] MEDS ORDERED: PHENYLEPHRINE-NS 100 MCG/ML 10 ML SYRINGE ONE (09:06)
[2022-03-16] MEDS ORDERED: Lidocaine 4% PF 5 ML AMP ONE (09:06)
== END 2022-03-16 11:15 | disposition home or self-care (01) ==
LOC: SDC 07:13
PROVIDERS: ATTEND Ophthalmology Retina Specialist
PROC: 08T53ZZ Resection of Left Vitreous, Percutaneous Approach (ICD-10-PCS; principal; 2022-03-16)
PROC: 08NF3ZZ Release Left Retina, Percutaneous Approach (ICD-10-PCS; 2022-03-16)
DX: H35.372 Puckering of macula, left eye (principal); Z79.4 Long term (current) use of insulin; Z79.82 Long term (current) use of aspirin; Z79.84 Long term (current) use of oral hypoglycemic drugs; Z79.899 Other long term (current) drug therapy
CPT/HCPCS: 36416; J0171; J0690; J1650; J2250; J2405; J2704; J2765; J3010; J3301; J3490; J9190

== ENCOUNTER 2022-05-13 19:20 | Emergency (ER) | payer OTHER ==
[2022-05-13 20:43] LABS: #Eosinphils 0.3 thou/uL (0.0-0.7); #Lymphocytes 2.1 thou/uL (1.20-3.40); #Monocytes 0.4 thou/uL (0.11-0.59); #Neutrophils 5.3 thou/uL (1.40-6.50); %Basophils 0.2 % (0.0-1.0); %Eosinophils 3.3 % (0.0-10.0); %Monocytes 4.5 % (0.0-10.0); Hemoglobin 13.3 g/dL (12.0-16.0); Mean Corpuscular Hemoglobin 30.9 pg (27.0-31.0); Mean Corpuscular Volume 90.8 fL (78.0-98.0); Mean Platelet Volume 7.8 fL (7.4-10.4); Platelet Count 301 thou/uL (130-400); RBC Distribution Width 12.9 % (11.5-14.5); Red Blood Cell (RBC) Count 4.32 mill/uL (4.20-5.40); White Blood Cell (WBC) Count 8.1 thou/uL (4.8-10.8)
[2022-05-13 21:05] LABS: ALT (SGPT) 16 U/L (8-55); AST (SGOT) 8 U/L (5-34); Albumin 3.6 g/dL (3.5-5.0); Alkaline Phosphatase 93 U/L (40-110); Anion Gap 16 mmol/L (10-20); BUN (Urea Nitrogen) 18 mg/dL (9.8-20.1); Bilirubin, Total 0.6 mg/dL (0.2-1.2); Calc. Creatinine Clearance 0 mL/min (70-130); Calcium 9.3 mg/dL (7.8-10.44); Carbon Dioxide 24 mmol/L (22-29); Chloride 100 mmol/L (98-107); Globulin 2.9 g/dL (2.4-3.5); Glucose 313 mg/dL (70-105); Potassium 4.1 mmol/L (3.5-5.1); Protein, Total 6.5 g/dL (6.0-8.3); Sodium 136 mmol/L (136-145)
[2022-05-13] MEDS ORDERED: HYDROcodone/Acetaminophen 10/325 mg Tablet ONE (22:44)
== END 2022-05-13 22:50 | disposition home or self-care (01) ==
LOC: ERS 19:20
DX: S62.392A Other fracture of third metacarpal bone, right hand, initial encounter for closed fracture (principal); R42 Dizziness and giddiness; I44.0 Atrioventricular block, first degree; I10 Essential (primary) hypertension; E11.9 Type 2 diabetes mellitus without complications; I25.10 Atherosclerotic heart disease of native coronary artery without angina pectoris; G47.30 Sleep apnea, unspecified; W18.30XA Fall on same level, unspecified, initial encounter; Y93.01 Activity, walking, marching and hiking; Y92.009 Unspecified place in unspecified non-institutional (private) residence as the place of occurrence of the external cause; Z95.5 Presence of coronary angioplasty implant and graft
CPT/HCPCS: 26605; 36415; 80053; 84484; 85025; 93005

== ENCOUNTER 2022-05-20 17:33 | Inpatient (IN) | payer OTHER ==
[2022-05-20 18:05] LABS: #Lymphocytes 0.7 thou/uL (1.20-3.40); #Monocytes 0.4 thou/uL (0.11-0.59); #Neutrophils 9.1 thou/uL (1.40-6.50); %Basophils 0.3 % (0.0-1.0); %Eosinophils 0.2 % (0.0-10.0); %Lymphocytes 6.6 % (21.0-51.0); %Monocytes 3.9 % (0.0-10.0); Hemoglobin 15.1 g/dL (12.0-16.0); Mean Corpuscular HGB CONC 33.4 g/dL (32.0-36.0); Mean Corpuscular Hemoglobin 30.5 pg (27.0-31.0); Mean Corpuscular Volume 91.4 fL (78.0-98.0); Mean Platelet Volume 8.4 fL (7.4-10.4); Platelet Count 241 thou/uL (130-400); RBC Distribution Width 12.9 % (11.5-14.5); Red Blood Cell (RBC) Count 4.94 mill/uL (4.20-5.40); White Blood Cell (WBC) Count 10.2 thou/uL (4.8-10.8)
[2022-05-20 18:10] LABS: Actual Bicarbonate (HCO3v) 21 mEq/L (22-28); Analyzer IN Cardio ER; Base Excess -4.5 mEq/L (-2.0 to +3.0); Calcium, Ionized (venous) 1.14 mmol/L (1.16-1.32); Chloride (VBG) 99 mmol/L (98-106); Hemoglobin (Hb) 15.8 g/dL (11.7-16.0); Potassium (VBG) 4.63 mmol/L (3.70-5.30); Sodium 133.2 mmol/L (133-146); pH (venous) 7.35 (7.32-7.43)
[2022-05-20 18:25] LABS: ALT (SGPT) 24 U/L (8-55); AST (SGOT) 28 U/L (5-34); Alkaline Phosphatase 96 U/L (40-110); Anion Gap 21 mmol/L (10-20); BUN (Urea Nitrogen) 24 mg/dL (9.8-20.1); Bilirubin, Total 1.2 mg/dL (0.2-1.2); CK (CPK) 963 U/L (29-168); Calc. Creatinine Clearance 0 mL/min (70-130); Calcium 9.8 mg/dL (7.8-10.44); Carbon Dioxide 19 mmol/L (22-29); Chloride 99 mmol/L (98-107); Globulin 3.8 g/dL (2.4-3.5); Glucose 483 mg/dL (70-105); Potassium 4.6 mmol/L (3.5-5.1); Protein, Total 7.8 g/dL (6.0-8.3); Sodium 134 mmol/L (136-145)
[2022-05-20 18:53] LABS: Bacteria/HPF 4+ HPF (None Seen); Bilirubin Negative (Negative); Blood, Urine 3+ (Negative); Clarity Turbid (Clear); Glucose, Urine (Dipstick) Greater than 1000 mg/dL (Negative); Ketone, Urine 60 mg/dL (Negative); Leukocyte Negative Leu/uL (Negative); Nitrite 2+ (Negative); Protein, Urine (Dipstick) 300 mg/dL (Neg-Trace); RBC/HPF 0-3 HPF (0-3); Specific Gravity, Urine 1.023 (1.002-1.036); Squamous Epithelial 0-3 HPF (0-3); Urobilinogen Normal mg/dL (Less than 2); pH, Urine 5.5 (5.0-9.0)
[2022-05-20] MEDS ORDERED: Insulin Regular 300 UNITS/3 ML VIAL ONE (19:10)
[2022-05-20] MEDS ORDERED: Ondansetron PF 4 MG/2 ML Vial IVP PRN (20:30)
[2022-05-20] MEDS ORDERED: Dextrose 5% in Water 1,000 ML IV PRN (20:30)
[2022-05-20] MEDS ORDERED: Dextrose 50% Abboject 50 ML SYRINGE SLOW IVP PRN (20:30)
[2022-05-20] MEDS ORDERED: Bisacodyl 10 MG SUPP PR PRN (20:30)
[2022-05-20] MEDS ORDERED: Insulin Glargine 30 UNITS/0.3 ML VIAL SC SCH (21:00)
[2022-05-20] MEDS: Atorvastatin Calcium 40 MG TAB PO SCH (22:23)
[2022-05-20] MEDS: metFORMIN 500 MG TAB PO SCH (22:23)
[2022-05-20] MEDS: HYDROcodone/Acetaminophen 7.5/325 mg Tablet PO PRN (22:23)
[2022-05-20] MEDS: Sodium Chloride 0.9% 1,000 ML IV SCH (22:24)
[2022-05-20] MEDS: Zolpidem Tartrate 5 MG TAB PO PRN (22:25)
[2022-05-20] MEDS: HumaLOG 300 UNITS/3 ML VIAL SC PRN (22:26)
[2022-05-20] MEDS: Insulin Glargine 30 UNITS/0.3 ML VIAL SC SCH (22:32)
[2022-05-20 23:54] VITALS: BMI 37.2
[2022-05-21 06:11] LABS: #Lymphocytes 1.8 thou/uL (1.20-3.40); #Monocytes 0.8 thou/uL (0.11-0.59); #Neutrophils 5.6 thou/uL (1.40-6.50); %Basophils 0.4 % (0.0-1.0); %Eosinophils 0.2 % (0.0-10.0); %Lymphocytes 21.6 % (21.0-51.0); %Monocytes 9.5 % (0.0-10.0); %Neutrophils 68.3 % (42.0-75.0); Hemoglobin 13.4 g/dL (12.0-16.0); Mean Corpuscular HGB CONC 32.8 g/dL (32.0-36.0); Mean Corpuscular Hemoglobin 30.2 pg (27.0-31.0); Mean Platelet Volume 8.1 fL (7.4-10.4); Platelet Count 233 thou/uL (130-400); Red Blood Cell (RBC) Count 4.44 mill/uL (4.20-5.40); White Blood Cell (WBC) Count 8.3 thou/uL (4.8-10.8)
[2022-05-21 06:35] LABS: ALT (SGPT) 26 U/L (8-55); AST (SGOT) 36 U/L (5-34); Albumin 3.2 g/dL (3.5-5.0); Alkaline Phosphatase 71 U/L (40-110); Anion Gap 16 mmol/L (10-20); BUN (Urea Nitrogen) 21 mg/dL (9.8-20.1); Bilirubin, Total 0.7 mg/dL (0.2-1.2); CK (CPK) 1661 U/L (29-168); Calc. Creatinine Clearance 112 mL/min (70-130); Calcium 8.5 mg/dL (7.8-10.44); Carbon Dioxide 20 mmol/L (22-29); Chloride 108 mmol/L (98-107); Globulin 2.9 g/dL (2.4-3.5); Glucose 214 mg/dL (70-105); Potassium 3.6 mmol/L (3.5-5.1); Protein, Total 6.1 g/dL (6.0-8.3); Sodium 140 mmol/L (136-145)
[2022-05-21] MEDS: HYDROcodone/Acetaminophen 7.5/325 mg Tablet PO PRN (08:37)
[2022-05-21] MEDS: Enoxaparin Sodium 40 MG/0.4 ML SYRINGE SC SCH (08:38)
[2022-05-21] MEDS: Ezetimibe 10 MG TAB PO SCH (08:38)
[2022-05-21] MEDS: metFORMIN 500 MG TAB PO SCH ×2 (08:38→22:29)
[2022-05-21] MEDS: Amlodipine 10 MG TAB PO SCH (08:39)
[2022-05-21] MEDS: Aspirin Chewable 81 MG TAB PO SCH (08:39)
[2022-05-21] MEDS: Losartan 25 MG TAB PO SCH (08:39)
[2022-05-21] MEDS: HumaLOG 300 UNITS/3 ML VIAL SC SCH ×3 (08:39→17:09)
[2022-05-21] MEDS: Sodium Chloride 0.9% 1,000 ML IV SCH ×2 (08:43→22:34)
[2022-05-21] MEDS: Empagliflozin 10 MG TAB PO SCH (08:43)
[2022-05-21] MEDS: Cepastat Lozenges 1 LOZ PO PRN ×2 (17:44→23:37)
[2022-05-21] MEDS: Atorvastatin Calcium 40 MG TAB PO SCH (22:29)
[2022-05-21] MEDS: Zolpidem Tartrate 5 MG TAB PO PRN (22:29)
[2022-05-21] MEDS ORDERED: Chloraseptic Spray 180 ml Bottle PO PRN (22:47)
[2022-05-21] MEDS: Insulin Glargine 30 UNITS/0.3 ML VIAL SC SCH (23:06)
[2022-05-21] MEDS: Acetaminophen 325 MG TAB PO PRN (23:41)
[2022-05-22] MEDS: HYDROcodone/Acetaminophen 7.5/325 mg Tablet PO PRN ×3 (01:58→14:54)
[2022-05-22 06:09] LABS: #Lymphocytes 1.5 thou/uL (1.20-3.40); #Monocytes 0.5 thou/uL (0.11-0.59); #Neutrophils 5.1 thou/uL (1.40-6.50); %Basophils 0.2 % (0.0-1.0); %Eosinophils 0.6 % (0.0-10.0); %Lymphocytes 20.9 % (21.0-51.0); %Monocytes 6.6 % (0.0-10.0); %Neutrophils 71.8 % (42.0-75.0); Hemoglobin 12.2 g/dL (12.0-16.0); Mean Corpuscular HGB CONC 33.4 g/dL (32.0-36.0); Mean Corpuscular Hemoglobin 30.5 pg (27.0-31.0); Mean Corpuscular Volume 91.2 fL (78.0-98.0); Mean Platelet Volume 8.3 fL (7.4-10.4); Platelet Count 217 thou/uL (130-400); Red Blood Cell (RBC) Count 3.99 mill/uL (4.20-5.40); White Blood Cell (WBC) Count 7.2 thou/uL (4.8-10.8)
[2022-05-22] MEDS: Sodium Chloride 0.9% 1,000 ML IV SCH ×3 (06:17→21:53)
[2022-05-22 06:28] LABS: Anion Gap 14 mmol/L (10-20); BUN (Urea Nitrogen) 21 mg/dL (9.8-20.1); CK (CPK) 940 U/L (29-168); Calc. Creatinine Clearance 115 mL/min (70-130); Calcium 8.2 mg/dL (7.8-10.44); Carbon Dioxide 20 mmol/L (22-29); Chloride 108 mmol/L (98-107); Glucose 115 mg/dL (70-105); Potassium 3.4 mmol/L (3.5-5.1); Sodium 139 mmol/L (136-145)
[2022-05-22] MEDS: metFORMIN 500 MG TAB PO SCH ×2 (08:19→21:54)
[2022-05-22] MEDS: Ezetimibe 10 MG TAB PO SCH (08:19)
[2022-05-22] MEDS: Amlodipine 10 MG TAB PO SCH (08:20)
[2022-05-22] MEDS: Empagliflozin 10 MG TAB PO SCH (08:23)
[2022-05-22] MEDS: Aspirin Chewable 81 MG TAB PO SCH (08:23)
[2022-05-22] MEDS: Losartan 25 MG TAB PO SCH (08:23)
[2022-05-22] MEDS: Enoxaparin Sodium 40 MG/0.4 ML SYRINGE SC SCH (08:23)
[2022-05-22] MEDS ORDERED: REMDESIVIR 200 MG in Sodium Chloride 0.9% 250 ML 210 ML IV SCH (16:45)
[2022-05-22] MEDS ORDERED: Insulin Glargine 30 UNITS/0.3 ML VIAL SC SCH (21:00)
[2022-05-22] MEDS: Atorvastatin Calcium 40 MG TAB PO SCH (21:54)
[2022-05-22] MEDS: Zolpidem Tartrate 5 MG TAB PO PRN (21:54)
[2022-05-23] MEDS ORDERED: Guaifenesin DM 100-10/5 ML UDCUP PO PRN (00:03)
[2022-05-23] MEDS: Acetaminophen 325 MG TAB PO PRN (01:54)
[2022-05-23] MEDS: GUAIFENESIN DM SF 5 ML UDCUP PO PRN ×2 (05:55→22:51)
[2022-05-23] MEDS: metFORMIN 500 MG TAB PO SCH ×2 (08:53→21:34)
[2022-05-23] MEDS: Aspirin Chewable 81 MG TAB PO SCH (08:53)
[2022-05-23] MEDS: Amlodipine 10 MG TAB PO SCH (08:53)
[2022-05-23] MEDS: Losartan 25 MG TAB PO SCH (08:54)
[2022-05-23] MEDS: Empagliflozin 10 MG TAB PO SCH (08:54)
[2022-05-23] MEDS: Ezetimibe 10 MG TAB PO SCH (08:54)
[2022-05-23] MEDS: Enoxaparin Sodium 40 MG/0.4 ML SYRINGE SC SCH (08:54)
[2022-05-23] MEDS: HumaLOG 300 UNITS/3 ML VIAL SC PRN (17:34)
[2022-05-23] MEDS: REMDESIVIR 100 MG in Sodium Chloride 0.9% 250 ML 230 ML IV SCH (17:34)
[2022-05-23] MEDS: Atorvastatin Calcium 40 MG TAB PO SCH (21:34)
[2022-05-23] MEDS: HYDROcodone/Acetaminophen 7.5/325 mg Tablet PO PRN (21:39)
[2022-05-24] MEDS: Zolpidem Tartrate 5 MG TAB PO PRN (00:53)
[2022-05-24] MEDS: Empagliflozin 10 MG TAB PO SCH (08:30)
[2022-05-24] MEDS: Amlodipine 10 MG TAB PO SCH (08:31)
[2022-05-24] MEDS: Losartan 25 MG TAB PO SCH (08:31)
[2022-05-24] MEDS: Ezetimibe 10 MG TAB PO SCH (08:31)
[2022-05-24] MEDS: metFORMIN 500 MG TAB PO SCH ×2 (08:31→22:31)
[2022-05-24] MEDS: HYDROcodone/Acetaminophen 7.5/325 mg Tablet PO PRN ×2 (08:31→22:31)
[2022-05-24] MEDS: Aspirin Chewable 81 MG TAB PO SCH (08:31)
[2022-05-24] MEDS: Enoxaparin Sodium 40 MG/0.4 ML SYRINGE SC SCH (08:32)
[2022-05-24] MEDS: HumaLOG 300 UNITS/3 ML VIAL SC PRN (13:15)
[2022-05-24] MEDS: REMDESIVIR 100 MG in Sodium Chloride 0.9% 250 ML 230 ML IV SCH (16:40)
[2022-05-24] MEDS: Atorvastatin Calcium 40 MG TAB PO SCH (22:30)
[2022-05-25] MEDS: GUAIFENESIN DM SF 5 ML UDCUP PO PRN (00:23)
[2022-05-25] MEDS: HumaLOG 300 UNITS/3 ML VIAL SC PRN ×2 (05:39→21:08)
[2022-05-25 06:23] LABS: #Eosinphils 0.2 thou/uL (0.0-0.7); #Lymphocytes 1.7 thou/uL (1.20-3.40); #Monocytes 0.3 thou/uL (0.11-0.59); #Neutrophils 2.1 thou/uL (1.40-6.50); %Basophils 0.3 % (0.0-1.0); %Eosinophils 4.7 % (0.0-10.0); %Lymphocytes 39.8 % (21.0-51.0); %Monocytes 6.7 % (0.0-10.0); %Neutrophils 48.5 % (42.0-75.0); Hemoglobin 11.9 g/dL (12.0-16.0); Mean Corpuscular HGB CONC 32.8 g/dL (32.0-36.0); Mean Corpuscular Hemoglobin 30.5 pg (27.0-31.0); Mean Corpuscular Volume 92.9 fL (78.0-98.0); Mean Platelet Volume 8.1 fL (7.4-10.4); Platelet Count 209 thou/uL (130-400); White Blood Cell (WBC) Count 4.3 thou/uL (4.8-10.8)
[2022-05-25 06:40] LABS: ALT (SGPT) 22 U/L (8-55); AST (SGOT) 23 U/L (5-34); Albumin 2.8 g/dL (3.5-5.0); Alkaline Phosphatase 64 U/L (40-110); Anion Gap 15 mmol/L (10-20); BUN (Urea Nitrogen) 19 mg/dL (9.8-20.1); Bilirubin, Total 0.4 mg/dL (0.2-1.2); Calc. Creatinine Clearance 124 mL/min (70-130); Calcium 8.3 mg/dL (7.8-10.44); Carbon Dioxide 22 mmol/L (22-29); Chloride 108 mmol/L (98-107); Estimated GFR 89; Globulin 2.9 g/dL (2.4-3.5); Glucose 177 mg/dL (70-105); Potassium 3.7 mmol/L (3.5-5.1); Protein, Total 5.7 g/dL (6.0-8.3); Sodium 141 mmol/L (136-145)
[2022-05-25] MEDS: Aspirin Chewable 81 MG TAB PO SCH (08:44)
[2022-05-25] MEDS: Enoxaparin Sodium 40 MG/0.4 ML SYRINGE SC SCH (08:44)
[2022-05-25] MEDS: metFORMIN 500 MG TAB PO SCH ×2 (08:44→21:00)
[2022-05-25] MEDS: Empagliflozin 10 MG TAB PO SCH (08:45)
[2022-05-25] MEDS: Losartan 25 MG TAB PO SCH (08:46)
[2022-05-25] MEDS: Ezetimibe 10 MG TAB PO SCH (08:46)
[2022-05-25] MEDS: Amlodipine 10 MG TAB PO SCH (08:46)
[2022-05-25] MEDS: REMDESIVIR 100 MG in Sodium Chloride 0.9% 250 ML 230 ML IV SCH (17:03)
[2022-05-25] MEDS: Atorvastatin Calcium 40 MG TAB PO SCH (21:00)
[2022-05-26] MEDS: HumaLOG 300 UNITS/3 ML VIAL SC PRN (05:50)
[2022-05-26 07:18] LABS: ALT (SGPT) 23 U/L (8-55); AST (SGOT) 20 U/L (5-34); Albumin 3.1 g/dL (3.5-5.0); Alkaline Phosphatase 64 U/L (40-110); Anion Gap 13 mmol/L (10-20); BUN (Urea Nitrogen) 13 mg/dL (9.8-20.1); Bilirubin, Total 0.5 mg/dL (0.2-1.2); Calc. Creatinine Clearance 130 mL/min (70-130); Calcium 8.8 mg/dL (7.8-10.44); Carbon Dioxide 25 mmol/L (22-29); Chloride 106 mmol/L (98-107); Estimated GFR 95; Globulin 2.9 g/dL (2.4-3.5); Glucose 159 mg/dL (70-105); Potassium 3.3 mmol/L (3.5-5.1); Sodium 141 mmol/L (136-145)
[2022-05-26] MEDS: metFORMIN 500 MG TAB PO SCH ×2 (10:26→20:23)
[2022-05-26] MEDS: Ezetimibe 10 MG TAB PO SCH (10:26)
[2022-05-26] MEDS: Amlodipine 10 MG TAB PO SCH (10:26)
[2022-05-26] MEDS: Enoxaparin Sodium 40 MG/0.4 ML SYRINGE SC SCH (10:27)
[2022-05-26] MEDS: Losartan 25 MG TAB PO SCH (10:27)
[2022-05-26] MEDS: Aspirin Chewable 81 MG TAB PO SCH (10:27)
[2022-05-26] MEDS: Empagliflozin 10 MG TAB PO SCH (10:27)
[2022-05-26] MEDS: GUAIFENESIN DM SF 5 ML UDCUP PO PRN (12:08)
[2022-05-26] MEDS: REMDESIVIR 100 MG in Sodium Chloride 0.9% 250 ML 230 ML IV SCH (18:54)
[2022-05-26] MEDS: Atorvastatin Calcium 40 MG TAB PO SCH (20:24)
[2022-05-27] MEDS: GUAIFENESIN DM SF 5 ML UDCUP PO PRN (00:34)
[2022-05-27] MEDS: Zolpidem Tartrate 5 MG TAB PO PRN (00:36)
[2022-05-27] MEDS: HumaLOG 300 UNITS/3 ML VIAL SC PRN (05:54)
[2022-05-27] MEDS ORDERED: Losartan 25 MG TAB PO SCH (09:00)
[2022-05-27] MEDS: Amlodipine 10 MG TAB PO SCH (10:24)
[2022-05-27] MEDS: Aspirin Chewable 81 MG TAB PO SCH (10:24)
[2022-05-27] MEDS: Losartan 25 MG TAB PO SCH (10:24)
[2022-05-27] MEDS: Ezetimibe 10 MG TAB PO SCH (10:24)
[2022-05-27] MEDS: metFORMIN 500 MG TAB PO SCH (10:24)
[2022-05-27] MEDS: Empagliflozin 10 MG TAB PO SCH (10:24)
[2022-05-27] MEDS: Enoxaparin Sodium 40 MG/0.4 ML SYRINGE SC SCH (10:25)
[2022-05-27 12:51] VITALS: BP 142/81; TEMP 97.6
== END 2022-05-27 12:55 | disposition home or self-care (01) | DRG 177 ==
LOC: ERS 17:33 → T4-A 19:27
PROVIDERS: ADMIT Family Medicine; ATTEND Hospitalist
PROC: 8E0ZXY6 Isolation (ICD-10-PCS; 2022-05-20)
PROC: 3E03329 Introduction of Other Anti-infective into Peripheral Vein, Percutaneous Approach (ICD-10-PCS; 2022-05-20)
PROC: XW033E5 Introduction of Remdesivir Anti-infective into Peripheral Vein, Percutaneous Approach, New Technology Group 5 (ICD-10-PCS; principal; 2022-05-22)
DX: U07.1 COVID-19 (principal); J12.82 Pneumonia due to coronavirus disease 2019; N39.0 Urinary tract infection, site not specified; T79.6XXA Traumatic ischemia of muscle, initial encounter; I25.10 Atherosclerotic heart disease of native coronary artery without angina pectoris; I10 Essential (primary) hypertension; F41.9 Anxiety disorder, unspecified; F32.A Depression, unspecified; E66.9 Obesity, unspecified; E11.65 Type 2 diabetes mellitus with hyperglycemia; W19.XXXA Unspecified fall, initial encounter; M25.511 Pain in right shoulder; B96.89 Other specified bacterial agents as the cause of diseases classified elsewhere; K21.9 Gastro-esophageal reflux disease without esophagitis; R53.81 Other malaise; Z95.5 Presence of coronary angioplasty implant and graft; Z90.710 Acquired absence of both cervix and uterus; Z98.51 Tubal ligation status; Z79.82 Long term (current) use of aspirin; Z79.4 Long term (current) use of insulin; Z79.899 Other long term (current) drug therapy; Z79.84 Long term (current) use of oral hypoglycemic drugs; Y92.003 Bedroom of unspecified non-institutional (private) residence as the place of occurrence of the external cause; Z68.37 Body mass index [BMI] 37.0-37.9, adult
CPT/HCPCS: 36415; 36416; 51701; 71045; 71250; 80048; 80053; 81003; 81015; 82010; 82550; 82805; 83605; 84484; 85025; 86140; 87077; 87086; 87186; 94760; 96361; 96374; J0248; J1650; J1815; J7050; U0003; U0005

== ENCOUNTER 2022-05-28 23:21 | Inpatient (IN) | payer MEDICARE, MEDICAID ==
[~2022-05-28 23:21] MED LIST changes: -Fentanyl 100 MCG/2 ML VIAL ONE; -Fluorouracil 100 MG, Enoxaparin Sodium 25 MG, EPINEPHrine 0.3 MG in Ophthalmic Irrigati... IRR SCH; +Iopamidol 370 76% 100 ML VIAL ONE; -Midazolam HCl 2 mg/2 ml Vial ONE
[2022-05-28 23:36] LABS: #Eosinphils 0.2 thou/uL (0.0-0.7); #Lymphocytes 1.8 thou/uL (1.20-3.40); #Monocytes 0.5 thou/uL (0.11-0.59); #Neutrophils 3.5 thou/uL (1.40-6.50); %Basophils 0.5 % (0.0-1.0); %Eosinophils 3.4 % (0.0-10.0); %Lymphocytes 29.4 % (21.0-51.0); %Neutrophils 58.7 % (42.0-75.0); Hemoglobin 12.2 g/dL (12.0-16.0); Mean Corpuscular HGB CONC 32.1 g/dL (32.0-36.0); Mean Corpuscular Hemoglobin 29.4 pg (27.0-31.0); Mean Corpuscular Volume 91.7 fL (78.0-98.0); Mean Platelet Volume 7.9 fL (7.4-10.4); Platelet Count 355 thou/uL (130-400); RBC Distribution Width 13.2 % (11.5-14.5); Red Blood Cell (RBC) Count 4.14 mill/uL (4.20-5.40)
[2022-05-28 23:41] LABS: PTT 33.3 sec (22.9-36.1)
[2022-05-28 23:50] LABS: ALT (SGPT) 26 U/L (8-55); AST (SGOT) 24 U/L (5-34); Albumin 3.3 g/dL (3.5-5.0); Alkaline Phosphatase 60 U/L (40-110); Anion Gap 15 mmol/L (10-20); BUN (Urea Nitrogen) 16 mg/dL (9.8-20.1); Bilirubin, Total 0.7 mg/dL (0.2-1.2); Calc. Creatinine Clearance 0 mL/min (70-130); Calcium 8.7 mg/dL (7.8-10.44); Carbon Dioxide 25 mmol/L (22-29); Chloride 101 mmol/L (98-107); Estimated GFR 78; Globulin 2.9 g/dL (2.4-3.5); Glucose 211 mg/dL (70-105); Lipase 24 U/L (8-78); Magnesium 1.7 mg/dL (1.6-2.6); Potassium 3.5 mmol/L (3.5-5.1); Protein, Total 6.2 g/dL (6.0-8.3); Sodium 137 mmol/L (136-145)
[2022-05-28 23:50] LABS: Acetaminophen Less than 10.0 mcg/mL (10.0-30.0); Alcohol Less than 10 mg/dL (Less than 10); Salicylate Less than 8.0 mg/dL (15.0-30.0)
[2022-05-29 00:17] LABS: Bilirubin Negative (Negative); Blood, Urine Trace (Negative); Clarity Extra Turbid (Clear); Glucose, Urine (Dipstick) Greater than 1000 mg/dL (Negative); Ketone, Urine Negative (Negative); Leukocyte 500 Leu/uL (Negative); Nitrite Negative (Negative); Protein, Urine (Dipstick) 300 mg/dL (Neg-Trace); Specific Gravity, Urine 1.032 (1.002-1.036); Urobilinogen Normal mg/dL (Less than 2)
[2022-05-29 00:25] LABS: Amphetamine Not Detected (NotDetected); Barbiturates Screen Not Detected (NotDetected); Benzodiazepine Screen Not Detected (NotDetected); Cocaine Metabolite Screen Not Detected (NotDetected); Methadone Not Detected (NotDetected); Methamphetamine Not Detected (NotDetected); Opiate Screen Not Detected (NotDetected); Oxycodone Screen Not Detected (NotDetected); Phencyclidine (PCP) Not Detected (NotDetected); THC/Cannabinoid Screen Not Detected (NotDetected); Tricyclic Screen Not Detected (NotDetected)
[2022-05-29 00:29] LABS: Bacteria/HPF 3+ HPF (None Seen); RBC/HPF 0-3 HPF (0-3); Yeast-Hyphae 2+ HPF (None Seen)
[2022-05-29 00:30] LABS: Yeast-Budding 4+ HPF (None Seen)
[2022-05-29] MEDS ORDERED: Aspirin Chewable 81 MG TAB ONE (00:38)
[2022-05-29] MEDS ORDERED: cefTRIAXone\\ROCEPHIN 1 GM VIAL ONE (00:38)
[2022-05-29] MEDS ORDERED: Dextrose 50% Abboject 50 ML SYRINGE SLOW IVP PRN (01:34)
[2022-05-29] MEDS ORDERED: Labetalol HCl 100 MG/20 ML VIAL SLOW IVP PRN (01:34)
[2022-05-29] MEDS ORDERED: HYDROcodone/Acetaminophen 5/325 mg Tablet PO PRN (01:34)
[2022-05-29] MEDS ORDERED: Dextrose 5% in Water 1,000 ML IV PRN (01:34)
[2022-05-29] MEDS ORDERED: HumaLOG 300 UNITS/3 ML VIAL SC PRN (01:34)
[2022-05-29] MEDS ORDERED: Guaifenesin DM 100-10/5 ML UDCUP PO PRN (01:34)
[2022-05-29] MEDS ORDERED: Acetaminophen 325 MG TAB PO PRN (01:34)
[2022-05-29] MEDS ORDERED: Bisacodyl 5 MG TAB PO PRN (01:34)
[2022-05-29] MEDS ORDERED: Zolpidem Tartrate 5 MG TAB PO PRN (01:34)
[2022-05-29 02:03] LABS: #Eosinphils 0.2 thou/uL (0.0-0.7); #Lymphocytes 1.7 thou/uL (1.20-3.40); #Monocytes 0.4 thou/uL (0.11-0.59); #Neutrophils 3.8 thou/uL (1.40-6.50); %Basophils 0.5 % (0.0-1.0); %Eosinophils 2.9 % (0.0-10.0); %Lymphocytes 27.5 % (21.0-51.0); %Monocytes 7.3 % (0.0-10.0); %Neutrophils 61.8 % (42.0-75.0); Hemoglobin 11.8 g/dL (12.0-16.0); Mean Corpuscular HGB CONC 32.3 g/dL (32.0-36.0); Mean Corpuscular Hemoglobin 29.5 pg (27.0-31.0); Mean Corpuscular Volume 91.2 fL (78.0-98.0); Mean Platelet Volume 7.8 fL (7.4-10.4); Platelet Count 337 thou/uL (130-400); RBC Distribution Width 13.1 % (11.5-14.5); White Blood Cell (WBC) Count 6.1 thou/uL (4.8-10.8)
[2022-05-29 02:17] LABS: Prothrombin Time 12.9 sec (12.0-14.7)
[2022-05-29 02:18] LABS: PTT 34.1 sec (22.9-36.1)
[2022-05-29 02:50] LABS: ALT (SGPT) 25 U/L (8-55); AST (SGOT) 23 U/L (5-34); Albumin 3.2 g/dL (3.5-5.0); Alkaline Phosphatase 58 U/L (40-110); Anion Gap 15 mmol/L (10-20); BUN (Urea Nitrogen) 16 mg/dL (9.8-20.1); Bilirubin, Total 0.6 mg/dL (0.2-1.2); Calc. Creatinine Clearance 0 mL/min (70-130); Calcium 8.7 mg/dL (7.8-10.44); Carbon Dioxide 23 mmol/L (22-29); Cardiac Risk 2.7 (Less than 4.5); Chloride 104 mmol/L (98-107); Cholesterol 104 mg/dl (< 200 Desired); Estimated GFR 91; Globulin 2.8 g/dL (2.4-3.5); Glucose 198 mg/dL (70-105); HDL Cholesterol 38 mg/dL (>60 Neg Risk); LDL Cholesterol, Calculated 39 mg/dL; Potassium 3.2 mmol/L (3.5-5.1); Sodium 139 mmol/L (136-145); Triglycerides 134 mg/dL (Less than 150)
[2022-05-29 03:05] VITALS: BMI 35.0
[2022-05-29] MEDS: HumaLOG 300 UNITS/3 ML VIAL SC PRN (06:13)
[2022-05-29] MEDS ORDERED: Potassium Chloride 10 MEQ in Premix Bag 1 BAG IVPB SCH (09:00)
[2022-05-29] MEDS: Clopidogrel Bisulfate 75 MG TAB PO SCH (09:14)
[2022-05-29] MEDS: Famotidine 20 MG TAB PO SCH ×2 (09:14→21:44)
[2022-05-29] MEDS: Aspirin 81 mg Enteric Coated Tablet PO SCH (09:14)
[2022-05-29] MEDS: Enoxaparin Sodium 40 MG/0.4 ML SYRINGE SC SCH (09:15)
[2022-05-29] MEDS ORDERED: Atorvastatin Calcium 40 MG TAB PO SCH (21:00)
[2022-05-30 05:36] LABS: #Eosinphils 0.3 thou/uL (0.0-0.7); #Monocytes 0.6 thou/uL (0.11-0.59); #Neutrophils 4.6 thou/uL (1.40-6.50); %Basophils 0.4 % (0.0-1.0); %Eosinophils 3.4 % (0.0-10.0); %Lymphocytes 26.2 % (21.0-51.0); %Monocytes 8.1 % (0.0-10.0); Hemoglobin 12.6 g/dL (12.0-16.0); Mean Corpuscular HGB CONC 32.3 g/dL (32.0-36.0); Mean Corpuscular Hemoglobin 29.3 pg (27.0-31.0); Mean Corpuscular Volume 90.9 fL (78.0-98.0); Mean Platelet Volume 7.7 fL (7.4-10.4); Platelet Count 367 thou/uL (130-400); RBC Distribution Width 13.1 % (11.5-14.5); Red Blood Cell (RBC) Count 4.29 mill/uL (4.20-5.40); White Blood Cell (WBC) Count 7.5 thou/uL (4.8-10.8)
[2022-05-30 05:45] LABS: Hemoglobin A1c 9.8 % (4.0-6.0)
[2022-05-30 05:56] LABS: Anion Gap 13 mmol/L (10-20); BUN (Urea Nitrogen) 14 mg/dL (9.8-20.1); Calc. Creatinine Clearance 108 mL/min (70-130); Calcium 8.8 mg/dL (7.8-10.44); Carbon Dioxide 26 mmol/L (22-29); Chloride 104 mmol/L (98-107); Estimated GFR 82; Glucose 179 mg/dL (70-105); Potassium 3.2 mmol/L (3.5-5.1); Sodium 140 mmol/L (136-145)
[2022-05-30] MEDS: HumaLOG 300 UNITS/3 ML VIAL SC PRN (06:14)
[2022-05-30] MEDS: Aspirin 81 mg Enteric Coated Tablet PO SCH (10:04)
[2022-05-30] MEDS: Enoxaparin Sodium 40 MG/0.4 ML SYRINGE SC SCH (10:04)
[2022-05-30] MEDS: Clopidogrel Bisulfate 75 MG TAB PO SCH (10:04)
[2022-05-30] MEDS: Famotidine 20 MG TAB PO SCH ×3 (10:04→22:06)
[2022-05-30] MEDS ORDERED: Potassium Chloride 20 MEQ TAB PO SCH (10:45)
[2022-05-30] MEDS: Polyethylene Glycol 3350 17 GM Packet PO SCH (12:38)
[2022-05-30] MEDS: metFORMIN 500 MG TAB PO SCH (17:20)
[2022-05-30] MEDS: Atorvastatin Calcium 40 MG TAB PO SCH ×2 (21:59→22:06)
[2022-05-31 06:05] LABS: Anion Gap 17 mmol/L (10-20); BUN (Urea Nitrogen) 11 mg/dL (9.8-20.1); Calc. Creatinine Clearance 125 mL/min (70-130); Carbon Dioxide 23 mmol/L (22-29); Chloride 104 mmol/L (98-107); Estimated GFR 97; Glucose 125 mg/dL (70-105); Potassium 3.5 mmol/L (3.5-5.1); Sodium 140 mmol/L (136-145)
[2022-05-31] MEDS ORDERED: FLUOXETINE HCL 10 MG PO SCH (09:00)
[2022-05-31] MEDS ORDERED: Non-Formulary Item 1 EACH (Atorvastatin Calcium [Atorvastatin Calcium] 80 MG Tablet) PO SCH (09:00)
[2022-05-31] MEDS: Polyethylene Glycol 3350 17 GM Packet PO SCH (09:17)
[2022-05-31] MEDS: Aspirin 81 mg Enteric Coated Tablet PO SCH (09:17)
[2022-05-31] MEDS: FLUoxetine HCl 10 MG CAP PO SCH (09:19)
[2022-05-31] MEDS: Clopidogrel Bisulfate 75 MG TAB PO SCH (09:19)
[2022-05-31] MEDS: Losartan 25 MG TAB PO SCH (09:19)
[2022-05-31] MEDS: metFORMIN 500 MG TAB PO SCH ×2 (09:20→17:27)
[2022-05-31] MEDS: Famotidine 20 MG TAB PO SCH ×2 (09:21→21:23)
[2022-05-31] MEDS: Enoxaparin Sodium 40 MG/0.4 ML SYRINGE SC SCH (09:22)
[2022-05-31 15:01] LABS: DRVVT Confirm 42.1; HEX PHOS LA Tube 1 44.6 SEC; HEX PHOS LA Tube 2 43.6 SEC
[2022-05-31] MEDS: HumaLOG 300 UNITS/3 ML VIAL SC PRN (18:25)
[2022-05-31] MEDS: Atorvastatin Calcium 40 MG TAB PO SCH (21:23)
[2022-06-01] MEDS: HumaLOG 300 UNITS/3 ML VIAL SC PRN ×2 (06:22→13:53)
[2022-06-01] MEDS: Enoxaparin Sodium 40 MG/0.4 ML SYRINGE SC SCH (09:16)
[2022-06-01] MEDS: Aspirin 81 mg Enteric Coated Tablet PO SCH (09:17)
[2022-06-01] MEDS: metFORMIN 500 MG TAB PO SCH (09:17)
[2022-06-01] MEDS: Famotidine 20 MG TAB PO SCH (09:17)
[2022-06-01] MEDS: Losartan 25 MG TAB PO SCH (09:17)
[2022-06-01] MEDS: Polyethylene Glycol 3350 17 GM Packet PO SCH (09:18)
[2022-06-01] MEDS: FLUoxetine HCl 10 MG CAP PO SCH (09:18)
[2022-06-01] MEDS: Clopidogrel Bisulfate 75 MG TAB PO SCH (11:16)
[2022-06-01 15:52] VITALS: BP 142/70; TEMP 97.2
[2022-06-02 14:10] LABS: ANA Symphony (Qualitative) Negative (Negative); ANA Symphony (Quantitative) 0.5 Ratio (< 0.7 Negative); Cardiolipin IgA Ab 3.5 APL-U/mL (<14 Negative); Cardiolipin IgM Ab Less than 0.8 MPL-U/mL (<10 Negative); EliA APS New Method **** NEW METHOD ****; beta-2-Glycoprotein I IgA Ab 1.6 U/mL (<7 Negative); beta-2-Glycoprotein I IgG Ab 1.5 U/mL (<7 Negative); beta-2-Glycoprotein I IgM Abs Less than 2.9 U/mL (<7 Negative); dsDNA IgG Antibody 2.8 IU/mL (<10 Negative)
[2022-06-02 14:45] LABS: CCP IgG Antibody 2.4 EliAU/mL (<7 Negative); Rheumatoid Factor IgA Antibody 3.4 IU/mL (<14 Negative); Rheumatoid Factor IgM Antibody 4.8 IU/mL (<3.5 Negative)
== END 2022-06-01 16:21 | DRG 64 ==
LOC: ERS 23:21 → NEURO 05-29 00:58 → MERGE 05-29 00:58
PROVIDERS: ADMIT Internal Medicine; ATTEND Internal Medicine
PROC: 8E0ZXY6 Isolation (ICD-10-PCS; principal; 2022-05-29)
DX: I63.532 Cerebral infarction due to unspecified occlusion or stenosis of left posterior cerebral artery (principal); U07.1 COVID-19; N39.0 Urinary tract infection, site not specified; R29.709 NIHSS score 9; R47.1 Dysarthria and anarthria; G83.21 Monoplegia of upper limb affecting right dominant side; B96.1 Klebsiella pneumoniae [K. pneumoniae] as the cause of diseases classified elsewhere; I10 Essential (primary) hypertension; E11.9 Type 2 diabetes mellitus without complications; I25.10 Atherosclerotic heart disease of native coronary artery without angina pectoris; R29.810 Facial weakness; I08.2 Rheumatic disorders of both aortic and tricuspid valves; Z28.21 Immunization not carried out because of patient refusal; Z86.73 Personal history of transient ischemic attack (TIA), and cerebral infarction without residual deficits; Z79.899 Other long term (current) drug therapy; Z79.84 Long term (current) use of oral hypoglycemic drugs; Z79.4 Long term (current) use of insulin; Z90.710 Acquired absence of both cervix and uterus
CPT/HCPCS: 36415; 36416; 51701; 70450; 70496; 70498; 70551; 71045; 80048; 80053; 80061; 80306; 80307; 81003; 81015; 83036; 83090; 83520; 83690; 83735; 84443; 84484; 85025; 85240; 85250; 85598; 85610; 85613; 85652; 85730; 86038; 86140; 86146; 86147; 86200; 86225; 93005; 93306; 96374; J0696; J1650; J1815; J3480; Q9967